=== PATIENT | male | born 1935 | race Caucasian/White ===

== ENCOUNTER 2017-06-15 13:38 | Emergency (ER) | payer MEDICARE, BC ==
--- NOTE | 2017-06-15 15:49 | EDM.PDOC ---
ED HPI GENERAL MEDICAL PROBLEM - General Chief Complaint: Gastrointestinal Problem Stated Complaint: DARK STOOLS VERY WEAK Time Seen by Provider: 06/15/17 14:50 Source of Information: Reports: Patient History Limitations: Reports: No Limitations - History of Present Illness INITIAL COMMENTS - FREE TEXT/NARRATIVE: 81-year-old male is in with weakness, dark stools for the past 4 days and generalized malaise. He had an echocardiogram at [place] done a week ago and has a significant bruise on the left chest from this, but that seems to be improving. No shortness of breath. He is on Coumadin and is due for an INR check in 2 weeks. He has no chest pain, abdominal pain, headache, or other bruising. He did brush his teeth vigorously the last few days and had a small amount of bleeding. Onset: Unknown/Unsure Severity: Moderate Associated Symptoms: Reports: Weakness - Related Data Allergies Allergy/AdvReac Type Severity Reaction Status Date / Time No Known Allergies Allergy Verified 06/15/17 14:41 Home Meds: Home Meds Finasteride [Finasteride] 5 mg PO DAILY 05/13/14 [History] Furosemide [Furosemide] 40 mg PO DAILY 05/13/14 [History] Lisinopril [Lisinopril] 2.5 mg PO DAILY 05/13/14 [History] Metoprolol Tartrate [Metoprolol Tartrate] 50 mg PO BID 05/13/14 [History] Warfarin [Coumadin] 5 mg PO MO 05/13/14 [History] atorvaSTATin [Lipitor] 40 mg PO DAILY 05/13/14 [History] metFORMIN [Glucophage] 1,000 mg PO QAM 05/13/14 [History] metFORMIN [Glucophage] 500 mg PO QPM 05/13/14 [History] Warfarin [Coumadin] 2.5 mg PO SUTUWETHFRSA 05/14/14 [History] Past Medical History HEENT History: Reports: Impaired Vision Cardiovascular History: Reports: Heart Valve Replacement, Hypertension, Pacemaker Genitourinary History: Reports: BPH Neurological History: Reports: CVA Endocrine/Metabolic History: Reports: Diabetes, Type II - Infectious Disease History Infectious Disease History: Reports: Chicken Pox, Measles, Mumps - Past Surgical History Cardiovascular Surgical History: Reports: Vascular Surgery Social & Family History - Tobacco Use Smoking Status *Q: Former Smoker Used Tobacco, but Quit: Yes Month Tobacco Last Used: 1988 Second Hand Smoke Exposure: No - Caffeine Use Caffeine Use: Reports: Coffee, Soda - Alcohol Use Days Per Week of Alcohol Use: 0 - Recreational Drug Use Recreational Drug Use: No ED ROS GENERAL - Review of Systems Review Of Systems: See Below Constitutional: Reports: Malaise, Weakness. Denies: Fever, Chills HEENT: Reports: Other (A small amount of dental bleeding with brushing, no epistaxis) Respiratory: Denies: Shortness of Breath, Cough Cardiovascular: Denies: Chest Pain Endocrine: Reports: Fatigue GI/Abdominal: Reports: Black Stool. Denies: Abdominal Pain, Nausea, Vomiting : Reports: No Symptoms Musculoskeletal: Reports: No Symptoms Skin: Reports: Bruising (Left chest from a recent echocardiogram) Neurological: Reports: Weakness. Denies: Headache, Syncope Psychiatric: Reports: No Symptoms ED EXAM, GENERAL - Physical Exam Exam: See Below Exam Limited By: No Limitations General Appearance: Alert, No Apparent Distress Eye Exam: Bilateral Eye: Normal Inspection Respiratory/Chest: No Respiratory Distress, Lungs Clear, Other (Patient has a bruise on the left lateral chest but there is no firmness or hematoma formation) Cardiovascular: Regular Rate, Rhythm, Other (Very loud systolic murmur from an artificial aortic valve) GI/Abdominal: Soft, Non-Tender Rectal (Males) Exam: Black Stool, Heme + Stool Extremities: No: Pedal Edema Neurological: Alert, Oriented Psychiatric: Normal Affect, Normal Mood Skin Exam: Warm, Dry, Other (Appears somewhat pale) Course - Vital Signs Last Recorded V/S: Last Vital Signs Temp 98.4 F 06/15/17 16:42 Pulse 85 06/15/17 16:42 Resp 16 06/15/17 16:42 BP 165/78 H 06/15/17 16:42 Pulse Ox 98 06/15/17 16:42 - Orders/Labs/Meds Orders: Active Orders 24 hr Category Date Time Status RED BLOOD CELLS LP [BBK] Stat Lab 06/15/17 15:15 Received TYPE AND SCREEN [BBK] Stat Lab 06/15/17 15:15 Received Transfuse Red Blood Cells [COMM] Stat Oth 06/15/17 16:17 Ordered Labs: Laboratory Tests 06/15/17 06/15/17 06/15/17 Range/Units 15:15 15:15 15:15 WBC 9.7 (4.5-11.0) K/uL RBC 3.01 L (4.30-5.90) M/uL Hgb 8.4 L D (12.0-15.0) g/dL Hct 25.4 L (40.0-54.0) % MCV 84 (80-98) fL MCH 28 (27-31) pg MCHC 33 (32-36) % Plt Count 203 (150-400) K/uL Neut % (Auto) 81 H (36-66) % Lymph % (Auto) 11 L (24-44) % [place] % (Auto) 8 H (2-6) % Eos % (Auto) 1 L (2-4) % Baso % (Auto) 0 (0-1) % PT > 100.0 H (9.5-12.0) sec INR (0.80-1.20) Sodium 137 L (140-148) mmol/L Potassium 4.9 (3.6-5.2) mmol/L Chloride 104 (100-108) mmol/L Carbon Dioxide 24 (21-32) mmol/L Anion Gap 13.9 (5.0-14.0) mmol/L BUN 40 H D (7-18) mg/dL Creatinine 1.2 (0.8-1.3) mg/dL Est Cr Clr Drug Dosing 52.09 mL/min Estimated GFR (MDRD) 58 L (>60) Glucose 172 H (74-106) mg/dL Calcium 7.7 L (8.5-10.1) mg/dL Meds: Medications Discontinued Medications Generic Name Dose Route Start Last Admin Trade Name Freq PRN Reason Stop Dose Admin Phytonadione 5 mg/ Sodium 50.5 mls @ 100 mls/hr 06/15/17 16:15 06/15/17 16:31 Chloride IV 06/15/17 16:45 100 mls/hr NOW ONE Administration Phytonadione 5 mg/ Sodium 50.5 mls @ 100 mls/hr 06/15/17 17:03 06/15/17 17:05 Chloride IV 06/15/17 17:33 100 mls/hr NOW ONE Administration Pantoprazole Sodium 40 mg 06/15/17 15:56 06/15/17 16:28 Protonix Iv IVPUSH 06/15/17 15:57 40 mg ONETIME ONE Administration - Re-Assessments/Exams Free Text/Narrative Re-Assessment/Exam: 06/15/17 15:49 Stool is strongly guaiac positive. Hemoglobin is 8.4 compared to 13 in August. 06/15/17 16:28 2 units of packed RBCs were ordered for infusion, 5 mg of vitamin K IV was given as well as 40 mg of IV Protonix. Dr. Talbert, hospitalist that he sentient in [place] kindly agreed to see the patient. Patient remained stable. 06/15/17 17:04 A second dose of vitamin K was given prior to discharge to [place]. An emergency release packed RBC was needed as the order to lab was delayed and the blood was not ready by discharge. Departure - Departure Time of Disposition: 17:43 Disposition: DC/Tfer to Other Condition: Fair Clinical Impression: Acute blood loss anemia GI bleeding Qualifiers: GI bleed type/associated pathology: melena Qualified Code(s): K92.1 - Melena - Discharge Information Referrals: Luis Talbert MD [Primary Care Provider] - Forms: ED Department Discharge Care Plan Goals: Patient is to be urgently transferred to [place] essential for inpatient management of blood loss anemia due to GI bleeding. - My Orders Last 24 Hours: My Active Orders 06/15/17 15:15 RED BLOOD CELLS LP [BBK] Stat TYPE AND SCREEN [BBK] Stat 06/15/17 16:17 Transfuse Red Blood Cells [COMM] Stat - Assessment/Plan Last 24 Hours: My Active Orders 06/15/17 15:15 RED BLOOD CELLS LP [BBK] Stat TYPE AND SCREEN [BBK] Stat 06/15/17 16:17 Transfuse Red Blood Cells [COMM] Stat
[2017-06-15] MEDS ORDERED: Pantoprazole 40 MG Vial IVPUSH ONE (15:56)
[2017-06-15] MEDS ORDERED: Phytonadione 5 MG in Sodium Chloride 0.9% 50 ML IV ONE ×3 (15:56→17:03)
[2017-06-15 16:43] VITALS: BP 165/78
== END 2017-06-15 17:44 | disposition other institution (70) ==
LOC: JP.ED 13:38
DX: K92.1 Melena (principal); D62 Acute posthemorrhagic anemia; Z79.899 Other long term (current) drug therapy; E11.9 Type 2 diabetes mellitus without complications; Z79.01 Long term (current) use of anticoagulants; Z87.891 Personal history of nicotine dependence
CPT/HCPCS: 36415; 36430; 80048; 82272; 85025; 85610; 86850; 86900; 86901; 86920; 86922; 96365; 96375; 99285; C9113; J3430; J7050; P9016; 99284

== ENCOUNTER 2020-06-26 11:47 | Inpatient (IN) | payer MEDICARE, BC ==
--- NOTE | 2020-06-26 12:50 | EDM.PDOC ---
ED HPI GENERAL MEDICAL PROBLEM - General Chief Complaint: General Stated Complaint: MEDICAL VIA [facility] Time Seen by Provider: 06/26/20 11:59 Source of Information: Reports: Patient, EMS History Limitations: Reports: No Limitations - History of Present Illness INITIAL COMMENTS - FREE TEXT/NARRATIVE: Vaibhav is an 84-year-old male presenting via EMS for evaluation of worsening dizziness and headache. Patient apparently had a fall striking his face and head on the ground 10 days ago. EMS was called at that time but he refused to come in to be evaluated. Patient is on anticoagulation with warfarin. In addition to this, the patient also has a history for diabetes and hypertension. Location: Reports: Head Context: Reports: Trauma Associated Symptoms: Reports: Headaches - Related Data Allergies Allergy/AdvReac Type Severity Reaction Status Date / Time No Known Allergies Allergy Verified 06/26/20 12:16 Home Meds: Home Meds Finasteride 5 mg PO DAILY 05/13/14 [History] Furosemide 40 mg PO DAILY 05/13/14 [History] Lisinopril 2.5 mg PO DAILY 05/13/14 [History] Metoprolol Tartrate 50 mg PO BID 05/13/14 [History] Warfarin [Coumadin] 5 mg PO MO 05/13/14 [History] atorvaSTATin [Lipitor] 40 mg PO DAILY 05/13/14 [History] metFORMIN [Glucophage] 1,000 mg PO QAM 05/13/14 [History] metFORMIN [Glucophage] 500 mg PO QPM 05/13/14 [History] Warfarin [Coumadin] 2.5 mg PO SUTUWETHFRSA 05/14/14 [History] Past Medical History HEENT History: Reports: Hard of Hearing, Impaired Vision Cardiovascular History: Reports: Heart Valve Replacement, Hypertension, [place] er Genitourinary History: Reports: BPH Neurological History: Reports: CVA Endocrine/Metabolic History: Reports: Diabetes, Type II Hematologic History: Reports: Anticoagulation Therapy - Infectious Disease History Infectious Disease History: Reports: Chicken Pox, Measles, Mumps - Past Surgical History Head Surgeries/Procedures: Reports: None HEENT Surgical History: Reports: None Cardiovascular Surgical History: Reports: Vascular Surgery Endocrine Surgical History: Reports: None Neurological Surgical History: Reports: None Dermatological Surgical History: Reports: None Social & Family History - Family History Family Medical History: Unobtainable - Tobacco Use Tobacco Use Status *Q: Former Tobacco User Used Tobacco, but Quit: Yes Month/Year Tobacco Last Used: 1987 Second Hand Smoke Exposure: No - Caffeine Use Caffeine Use: Reports: Soda - Recreational Drug Use Recreational Drug Use: No ED ROS GENERAL - Review of Systems Review Of Systems: See Below Constitutional: Reports: Fatigue Respiratory: Reports: No Symptoms Cardiovascular: Reports: No Symptoms Endocrine: Reports: No Symptoms GI/Abdominal: Reports: Nausea : Reports: No Symptoms Musculoskeletal: Reports: Neck Pain Skin: Reports: No Symptoms Neurological: Reports: Dizziness, Headache Psychiatric: Reports: No Symptoms Hematologic/Lymphatic: Reports: No Symptoms Immunologic: Reports: No Symptoms ED EXAM, GENERAL - Physical Exam Exam: See Below Exam Limited By: No Limitations General Appearance: Alert, Anxious, Mild Distress Eye Exam: Bilateral Eye: EOMI, PERRL Ears: Normal TMs Nose: Normal Inspection, Normal Mucosa, No Blood Throat/Mouth: Normal Inspection, Normal Lips, Normal Oropharynx, Normal Voice Head: Atraumatic, Normocephalic Neck: Normal Inspection, Supple, Non-Tender Respiratory/Chest: No Respiratory Distress, Lungs Clear, Normal Breath Sounds, No Accessory Muscle Use, Chest Non-Tender Cardiovascular: Normal Peripheral Pulses, Regular Rate, Rhythm, No Edema, No JV D, No Murmur Peripheral Pulses: 2+: Radial (L), Radial (R) GI/Abdominal: Normal Bowel Sounds, Soft, Non-Tender, No Distention Back Exam: Normal Inspection, Full Range of Motion Extremities: Normal Inspection, Normal Range of Motion, Non-Tender, No Pedal Edema Neurological: Alert, Oriented, CN II-XII Intact, Normal Cognition, No Motor/Sensory Deficits Psychiatric: Normal Affect, Anxious Skin Exam: Warm, Dry, Intact Lymphatic: No Adenopathy Course - Vital Signs Last Recorded V/S: Last Vital Signs Temp 36.3 C 06/26/20 12:17 Pulse 60 06/26/20 12:17 Resp 16 06/26/20 12:17 BP 128/76 06/26/20 12:17 Pulse Ox 97 06/26/20 12:17 Orthostatic Blood Pressure [ 91/55 Standing] Orthostatic Blood Pressure [ 104/61 Sitting] Orthostatic Blood Pressure [ 122/61 Supine] - Orders/Labs/Meds Orders: Active Orders 24 hr Category Date Time Status CULTURE URINE [RM] Stat Lab 06/26/20 15:57 Received Labs: Laboratory Tests 06/26/20 06/26/20 06/26/20 Range/Units 12:13 12:13 12:13 WBC 5.8 (4.5-11.0) K/uL RBC 4.20 L (4.30-5.90) M/uL Hgb 11.4 L D (12.0-15.0) g/dL Hct 35.2 L (40.0-54.0) % MCV 84 (80-98) fL MCH 27 (27-31) pg MCHC 32 (32-36) % Plt Count 251 (150-400) K/uL Neut % (Auto) 77 H (36-66) % Lymph % (Auto) 11 L (24-44) % Door % (Auto) 11 H (2-6) % Eos % (Auto) 0 L (2-4) % Baso % (Auto) 1 (0-1) % PT 98.0 H (9.5-12.0) sec INR 9.39 H* D (0.80-1.20) Sodium 135 L (140-148) mmol/L Potassium 4.8 (3.6-5.2) mmol/L Chloride 101 (100-108) mmol/L Carbon Dioxide 26 (21-32) mmol/L Anion Gap 12.8 (5.0-14.0) mmol/L BUN 28 H (7-18) mg/dL Creatinine 1.6 H (0.8-1.3) mg/dL Est Cr Clr Drug Dosing 37.05 mL/min Estimated GFR (MDRD) 41 L (>60) Glucose 142 H (74-106) mg/dL Calcium 8.2 L (8.5-10.1) mg/dL Total Bilirubin 1.3 H (0.2-1.0) mg/dL AST 25 (15-37) U/L ALT 16 (12-78) U/L Alkaline Phosphatase 102 (46-116) U/L Total Protein 5.5 L (6.4-8.2) g/dL Albumin 2.7 L (3.4-5.0) g/dL Globulin 2.8 (2.3-3.5) g/dL Albumin/Globulin Ratio 1.0 L (1.2-2.2) Urine Color (YELLOW) Urine Appearance (CLEAR) Urine pH (5.0-8.0) Ur Specific [place] (1.008-1.030) Urine Protein (NEGATIVE) mg/dL Urine Glucose (UA) (NEGATIVE) mg/dL Urine Ketones (NEGATIVE) mg/dL Urine Occult Blood (NEGATIVE) Urine Nitrite (NEGATIVE) Urine Bilirubin (NEGATIVE) Urine Urobilinogen (0.2-1.0) EU/dL Ur Leukocyte Esterase (NEGATIVE) Urine RBC (0-5) Urine WBC (0-5) Ur Epithelial Cells Amorphous Sediment Urine Bacteria SARS CoV-2 RNA Rapid MARTIN 06/26/20 06/26/20 Range/Units 15:03 15:35 WBC (4.5-11.0) K/uL RBC (4.30-5.90) M/uL Hgb (12.0-15.0) g/dL Hct (40.0-54.0) % MCV (80-98) fL MCH (27-31) pg MCHC (32-36) % Plt Count (150-400) K/uL Neut % (Auto) (36-66) % Lymph % (Auto) (24-44) % Door % (Auto) (2-6) % Eos % (Auto) (2-4) % Baso % (Auto) (0-1) % PT (9.5-12.0) sec INR (0.80-1.20) Sodium (140-148) mmol/L Potassium (3.6-5.2) mmol/L Chloride (100-108) mmol/L Carbon Dioxide (21-32) mmol/L Anion Gap (5.0-14.0) mmol/L BUN (7-18) mg/dL Creatinine (0.8-1.3) mg/dL Est Cr Clr Drug Dosing mL/min Estimated GFR (MDRD) (>60) Glucose (74-106) mg/dL Calcium (8.5-10.1) mg/dL Total Bilirubin (0.2-1.0) mg/dL AST (15-37) U/L ALT (12-78) U/L Alkaline Phosphatase (46-116) U/L Total Protein (6.4-8.2) g/dL Albumin (3.4-5.0) g/dL Globulin (2.3-3.5) g/dL Albumin/Globulin Ratio (1.2-2.2) Urine Color Yellow (YELLOW) Urine Appearance Slightly cloudy A (CLEAR) Urine pH 5.5 (5.0-8.0) Ur Specific [place] 1.015 (1.008-1.030) Urine Protein 30 H (NEGATIVE) mg/dL Urine Glucose (UA) Negative (NEGATIVE) mg/dL Urine Ketones Negative (NEGATIVE) mg/dL Urine Occult Blood Negative (NEGATIVE) Urine Nitrite Positive H (NEGATIVE) Urine Bilirubin Negative (NEGATIVE) Urine Urobilinogen 0.2 (0.2-1.0) EU/dL Ur Leukocyte Esterase Moderate H (NEGATIVE) Urine RBC Not seen (0-5) Urine WBC 50-75 H (0-5) Ur Epithelial Cells Not seen Amorphous Sediment Few Urine Bacteria Many SARS CoV-2 RNA Rapid MARTIN Positive H Meds: Medications Discontinued Medications Generic Name Dose Route Start Last Admin Trade Name Freq PRN Reason Stop Dose Admin Phytonadione 10 mg/ Sodium 51 mls @ 100 mls/hr 06/26/20 14:57 06/26/20 15:28 Chloride IV 06/26/20 15:27 100 mls/hr NOW ONE Administration Ceftriaxone Sodium 1 gm/ 50 mls @ 100 mls/hr 06/26/20 17:00 Sodium Chloride IV 06/26/20 17:29 ONETIME ONE Ceftriaxone Sodium 1 gm/ 50 mls @ 100 mls/hr 06/26/20 17:00 06/26/20 17:05 Sodium Chloride IV 06/26/20 17:29 100 mls/hr ONETIME ONE Administration - Re-Assessments/Exams Free Text/Narrative Re-Assessment/Exam: 06/26/20 15:23 patient has a markedly elevated INR at 9.3 with recent fall 10 days ago causing increased weakness, ongoing dizziness, and headache. A CT of his brain failed to demonstrate any acute intracranial abnormalities, however, he lives alone and with the recent falls and the supratherapeutic INR, I feel that he should come in until improved. A COVID-19 test is currently pending awaiting results prior to admission. Patient has been given vitamin K 10 mg IV for his supratherapeutic INR. 06/26/20 15:55 urinalysis shows nitrite positive and 50-75 WBCs consistent with an acute urinary tract infection. Patient is also COVID-19 positive. We will discussed the case with Dr Noonan as the patient will likely need to be admitted to [facility]. Antibiotic therapy was initiated with Rocephin 1 g IV after urine cultures were obtained. Departure - Departure Time of Disposition: 17:33 Disposition: Admitted As Inpatient 66 Condition: Fair Clinical Impression: Dizziness, Elevated INR, Generalized weakness, COVID-19 Fall from standing Qualifiers: Encounter type: initial encounter Qualified Code(s): W19.XXXA - Unspecified fall, initial encounter Urinary tract infection Qualifiers: Urinary tract infection type: acute cystitis Hematuria presence: without hematuria Qualified Code(s): N30.00 - Acute cystitis without hematuria - Discharge Information *PRESCRIPTION DRUG MONITORING PROGRAM REVIEWED*: Not Applicable *COPY OF PRESCRIPTION DRUG MONITORING REPORT IN PATIENT ROCKY: Not Applicable Referrals: PCP,None [Primary Care Provider] - Forms: ED Department Discharge Care Plan Goals: I will arrange for admission to the [facility]. I discussed the case with Dr. Noonan. Sepsis Event Note (ED) - Evaluation Sepsis Screening Result: No Definite Risk - Focused Exam Vital Signs: Vital Signs Temp Pulse Resp BP Pulse Ox 06/26/20 12:17 36.3 C 60 16 128/76 97 06/26/20 12:14 36.3 C 60 16 128/76 97 - Problem List & Annotations (1) Fall from standing SNOMED Code(s): 3570512 Code(s): W19.XXXA - UNSPECIFIED FALL, INITIAL ENCOUNTER Status: Acute Priority: Medium Current Visit: Yes Qualifiers: Encounter type: initial encounter Qualified Code(s): W19.XXXA - Unspecified fall, initial encounter (2) Dizziness SNOMED Code(s): 672985327, 189045790 Code(s): R42 - DIZZINESS AND GIDDINESS Status: Acute Priority: Medium Current Visit: Yes (3) Elevated INR SNOMED Code(s): 701773266 Code(s): R79.1 - ABNORMAL COAGULATION PROFILE Status: Acute Priority: High Current Visit: Yes (4) Generalized weakness SNOMED Code(s): 72960230 Code(s): R53.1 - WEAKNESS Status: Acute Priority: Medium Current Visit: Yes (5) COVID-19 SNOMED Code(s): 451516930 Code(s): U07.1 - COVID-19 Status: Acute Priority: High Current Visit: Yes (6) Urinary tract infection SNOMED Code(s): 24966428 Code(s): N39.0 - URINARY TRACT INFECTION, SITE NOT SPECIFIED Status: Acute Priority: Medium Current Visit: Yes Qualifiers: Urinary tract infection type: acute cystitis Hematuria presence: without hematuria Qualified Code(s): N30.00 - Acute cystitis without hematuria - Problem List Review Problem List Initiated/Reviewed/Updated: Yes - My Orders Last 24 Hours: My Active Orders 06/26/20 15:57 CULTURE URINE [RM] Stat - Assessment/Plan Last 24 Hours: My Active Orders 06/26/20 15:57 CULTURE URINE [RM] Stat Plan: I will arrange for admission to the hospital for a Covid bed. The case is discussed with Dr. Noonan.
--- NOTE | 2020-06-26 13:26 | CT ---
Head wo Cont CLINICAL HISTORY: Fall 2010 days ago, on anticoagulation, dizziness and headache COMPARISON: None TECHNIQUE: Transverse scans were obtained from the base of the skull through the vertex without IV contrast on a multislice, multidetector CT scanner. Auto dosage reduction and iterative reconstruction techniques employed. FINDINGS: There is a small irregular shaped low-attenuation focus in the right basal ganglia near the posterior horn of the internal capsule most consistent with a prior CVA. There is no mass effect, hemorrhage, or extraaxial collection. The basal cisterns and sulci over the convexities are prominent. The ventricles are mildly prominent. 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
[2020-06-26] MEDS ORDERED: Phytonadione 10 MG in Sodium Chloride 0.9% 50 ML IV ONE (14:57)
[2020-06-26] MEDS ORDERED: cefTRIAXone 1 GM in Sodium Chloride 0.9% 50 ML IV ONE ×3 (15:53→17:00)
--- NOTE | 2020-06-26 18:50 | PCM.HP.2 ---
H&P History of Present Illness - General Date of Service: 06/26/20 Admit Problem/Dx: Admission Diagnosis/Problem Admission Diagnosis/Problem Urinary tract infection Source of Information: Patient, Provider, RN Notes Reviewed History Limitations: Reports: No Limitations - History of Present Illness Initial Comments - Free Text/Narative: Mr. Cano is an 84-year-old gentleman who was admitted through the emergency department with weakness secondary to urinary tract infection and COVID-19. He has not felt well over the past week and a half and has become progressively m ore weak. He denies respiratory symptoms no shortness of breath or cough. He also denies any recent fever or chills. He has had a recent fall and several other episodes where he has come close to falling because of his weakness. On evaluation in the emergency department he is found to be Covid positive and also has evidence of urinary tract infection. 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 INR is markedly elevated at 9, he has had no evidence of active bleeding. - Related Data Allergies/Adverse Reactions: Allergies Allergy/AdvReac Type Severity Reaction Status Date / Time No Known Allergies Allergy Verified 06/26/20 12:16 Home Medications: Home Meds Finasteride 5 mg PO DAILY 05/13/14 [History] Furosemide 40 mg PO DAILY 05/13/14 [History] Lisinopril 2.5 mg PO DAILY 05/13/14 [History] Metoprolol Tartrate 50 mg PO BID 05/13/14 [History] Warfarin [Coumadin] 5 mg PO MO 05/13/14 [History] atorvaSTATin [Lipitor] 40 mg PO DAILY 05/13/14 [History] metFORMIN [Glucophage] 1,000 mg PO QAM 05/13/14 [History] metFORMIN [Glucophage] 500 mg PO QPM 05/13/14 [History] Warfarin [Coumadin] 2.5 mg PO [id number] 05/14/14 [History] Past Medical History HEENT History: Reports: Hard of Hearing, Impaired Vision Cardiovascular History: Reports: Heart Valve Replacement, Hypertension, Pacemaker Genitourinary History: Reports: BPH Neurological History: Reports: CVA Endocrine/Metabolic History: Reports: Diabetes, Type II Hematologic History: Reports: Anticoagulation Therapy - Infectious Disease History Infectious Disease History: Reports: Chicken Pox, Measles, Mumps - Past Surgical History Head Surgeries/Procedures: Reports: None HEENT Surgical History: Reports: None Cardiovascular Surgical History: Reports: Vascular Surgery Endocrine Surgical History: Reports: None Neurological Surgical History: Reports: None Dermatological Surgical History: Reports: None Social & Family History - Family History Family Medical History: Unobtainable - Tobacco Use Tobacco Use Status *Q: Former Tobacco User Used Tobacco, but Quit: Yes Month/Year Tobacco Last Used: 1987 Second Hand Smoke Exposure: No - Caffeine Use Caffeine Use: Reports: Soda - Recreational Drug Use Recreational Drug Use: No H&P Review of Systems - Review of Systems: Review Of Systems: See Below General: Reports: Weakness, Fatigue. Denies: Fever, Chills HEENT: Reports: No Symptoms Pulmonary: Reports: No Symptoms Cardiovascular: Reports: No Symptoms Gastrointestinal: Reports: No Symptoms Genitourinary: Reports: No Symptoms Musculoskeletal: Reports: No Symptoms Skin: Reports: No Symptoms Psychiatric: Reports: No Symptoms Neurological: Reports: No Symptoms Hematologic/Lymphatic: Reports: No Symptoms Immunologic: Reports: No Symptoms Exam - Exam Exam: See Below - Vital Signs Vital Signs: Last Vital Signs Temp 97.4 F 06/26/20 12:17 Pulse 60 06/26/20 12:17 Resp 16 06/26/20 12:17 BP 128/76 06/26/20 12:17 Pulse Ox 97 06/26/20 12:17 Orthostatic Blood Pressure [ 91/55 Standing] Orthostatic Blood Pressure [ 104/61 Sitting] Orthostatic Blood Pressure [ 122/61 Supine] Weight: 177 lb - Exam Quality Assessment: DVT Prophylaxis General: Alert, Cooperative, Mild Distress HEENT: Conjunctiva Clear, Hearing Intact, Mucosa Moist & [place], Normal Nasal Septum, Posterior Pharynx Clear, Pupils Equal Neck: Supple, Trachea Midline, +2 Carotid Pulse wo Bruit Lungs: Clear to Auscultation, Normal Respiratory Effort Cardiovascular: Regular Rate, Regular Rhythm, Normal S1, Normal S2, Other ([place] prosthetic valve sounds) GI/Abdominal Exam: Soft, Non-Tender, No Organomegaly, No Distention Back Exam: Normal Inspection, Full Range of Motion Extremities: Normal Inspection, Normal Range of Motion, Non-Tender, No Pedal Edema Skin: Warm, Dry, Intact Neurological: Cranial Nerves Intact, Strength Equal Bilateral, Normal Speech, Normal Tone, Sensation Intact. No: Focal Deficit Neuro Extensive - Mental Status: Alert, Disorientation to Time, Memory Loss- Recent Events - Patient Data Lab Results Last 24 hrs: Laboratory Results - last 24 hr 06/26/20 06/26/20 06/26/20 Range/Units 12:13 12:13 12:13 WBC 5.8 (4.5-11.0) K/uL RBC 4.20 L (4.30-5.90) M/uL Hgb 11.4 L D (12.0-15.0) g/dL Hct 35.2 L (40.0-54.0) % MCV 84 (80-98) fL MCH 27 (27-31) pg MCHC 32 (32-36) % Plt Count 251 (150-400) K/uL Neut % (Auto) 77 H (36-66) % Lymph % (Auto) 11 L (24-44) % [place] % (Auto) 11 H (2-6) % Eos % (Auto) 0 L (2-4) % Baso % (Auto) 1 (0-1) % PT 98.0 H (9.5-12.0) sec INR 9.39 H* D (0.80-1.20) Sodium 135 L (140-148) mmol/L Potassium 4.8 (3.6-5.2) mmol/L Chloride 101 (100-108) mmol/L Carbon Dioxide 26 (21-32) mmol/L Anion Gap 12.8 (5.0-14.0) mmol/L BUN 28 H (7-18) mg/dL Creatinine 1.6 H (0.8-1.3) mg/dL Est Cr Clr Drug Dosing 37.05 mL/min Estimated GFR (MDRD) 41 L (>60) Glucose 142 H (74-106) mg/dL Calcium 8.2 L (8.5-10.1) mg/dL Total Bilirubin 1.3 H (0.2-1.0) mg/dL AST 25 (15-37) U/L ALT 16 (12-78) U/L Alkaline Phosphatase 102 (46-116) U/L Total Protein 5.5 L (6.4-8.2) g/dL Albumin 2.7 L (3.4-5.0) g/dL Globulin 2.8 (2.3-3.5) g/dL Albumin/Globulin Ratio 1.0 L (1.2-2.2) Urine Color (YELLOW) Urine Appearance (CLEAR) Urine pH (5.0-8.0) Ur Specific [place] (1.008-1.030) Urine Protein (NEGATIVE) mg/dL Urine Glucose (UA) (NEGATIVE) mg/dL Urine Ketones (NEGATIVE) mg/dL Urine Occult Blood (NEGATIVE) Urine Nitrite (NEGATIVE) Urine Bilirubin (NEGATIVE) Urine Urobilinogen (0.2-1.0) EU/dL Ur Leukocyte Esterase (NEGATIVE) Urine RBC (0-5) Urine WBC (0-5) Ur Epithelial Cells Amorphous Sediment Urine Bacteria SARS CoV-2 RNA Rapid MARTIN 06/26/20 06/26/20 Range/Units 15:03 15:35 WBC (4.5-11.0) K/uL RBC (4.30-5.90) M/uL Hgb (12.0-15.0) g/dL Hct (40.0-54.0) % MCV (80-98) fL MCH (27-31) pg MCHC (32-36) % Plt Count (150-400) K/uL Neut % (Auto) (36-66) % Lymph % (Auto) (24-44) % [place] % (Auto) (2-6) % Eos % (Auto) (2-4) % Baso % (Auto) (0-1) % PT (9.5-12.0) sec INR (0.80-1.20) Sodium (140-148) mmol/L Potassium (3.6-5.2) mmol/L Chloride (100-108) mmol/L Carbon Dioxide (21-32) mmol/L Anion Gap (5.0-14.0) mmol/L BUN (7-18) mg/dL Creatinine (0.8-1.3) mg/dL Est Cr Clr Drug Dosing mL/min Estimated GFR (MDRD) (>60) Glucose (74-106) mg/dL Calcium (8.5-10.1) mg/dL Total Bilirubin (0.2-1.0) mg/dL AST (15-37) U/L ALT (12-78) U/L Alkaline Phosphatase (46-116) U/L Total Protein (6.4-8.2) g/dL Albumin (3.4-5.0) g/dL Globulin (2.3-3.5) g/dL Albumin/Globulin Ratio (1.2-2.2) Urine Color Yellow (YELLOW) Urine Appearance Slightly cloudy A (CLEAR) Urine pH 5.5 (5.0-8.0) Ur Specific [place] 1.015 (1.008-1.030) Urine Protein 30 H (NEGATIVE) mg/dL Urine Glucose (UA) Negative (NEGATIVE) mg/dL Urine Ketones Negative (NEGATIVE) mg/dL Urine Occult Blood Negative (NEGATIVE) Urine Nitrite Positive H (NEGATIVE) Urine Bilirubin Negative (NEGATIVE) Urine Urobilinogen 0.2 (0.2-1.0) EU/dL Ur Leukocyte Esterase Moderate H (NEGATIVE) Urine RBC Not seen (0-5) Urine WBC 50-75 H (0-5) Ur Epithelial Cells Not seen Amorphous Sediment Few Urine Bacteria Many SARS CoV-2 RNA Rapid MARTIN Positive H Result Diagrams: 06/26/20 12:13 06/26/20 12:13 Sepsis Event Note - Evaluation Sepsis Screening Result: No Definite Risk - Focused Exam Vital Signs: Vital Signs Temp Pulse Resp BP Pulse Ox 06/26/20 12:17 97.4 F 60 16 128/76 97 06/26/20 12:14 97.4 F 60 16 128/76 97 *Q Meaningful Use (ADM) - VTE *Q VTE Pharmacological Contraindications *Q: High INR Value - VTE Risk Assess *Q Each Risk Factor Represents 1 Point: Congestive heart failure (CHF) Total Score 1 Point Risk Factors: 1 Each Risk Factor Represents 2 Points: None Total Score 2 Point Risk Factors: 0 Each Risk Factor Represents 3 Points: Age 75 Years or Greater Total Score 3 Point Risk Factors: 3 Each Risk Factor Represents 5 Points: None Total Score 5 Point Risk Factors: 0 Venous Thromboembolism Risk Factor Score *Q: 4 Problem List Initiated/Reviewed/Updated: Yes Orders Last 24hrs: Active Orders 24 hr Category Date Time Status Patient Status Manage Transfer [TRANSFER] Routine ADT 06/26/20 18:04 Ordered CULTURE URINE [RM] Stat Lab 06/26/20 15:57 Received Resuscitation Status Routine Resus Stat 06/26/20 18:08 Ordered Assessment/Plan Comment:: ASSESSMENT AND PLAN URINARY TRACT INFECTION-symptoms of weakness but denies overt urinary symptoms. -Urine culture pending -Ceftriaxone 1 g IV every 24 hours GENERALIZED WEAKNESS-likely secondary to Covid as well as urinary tract infection. He has experienced a recent fall and has had several other close calls where he has been very near to a fall. He is currently not safe for discharged home. -Manage underlying medical problems -Physical therapy consult [id number] denies respiratory symptoms with no evidence of significant respiratory compromise or hypoxia -Supportive care -Monitor respiratory status -No active treatment at this time ELEVATED INR-given 10 mg of IV vitamin K in the emergency department -Reassess INR in a.m. TYPE 2 DIABETES MELLITUS -Continue Metformin -4 times daily glucometers -Low-dose sliding scale Humalog MAINTENANCE ISSUES -DVT prophylaxis; current elevated INR should provide adequate DVT prophylaxis -GI prophylaxis; not indicated -[place] catheter; not indicated -Nutrition; consistent carb diet -Nicotine dependence; not required CODE STATUS-FULL CODE ADMISSION STATUS-patient will be admitted to inpatient status, expect at least a 2 night hospital stay for evaluation and management of problems as outlined above. At the time of this admission I do not reasonably expected evaluation and management of this problem will require more than a 96 hour hospital stay. DISPOSITION-anticipate discharge to home after the hospital stay. PRIMARY CARE PROVIDER- - Mortality Measure Prognosis:: Good
[2020-06-26] MEDS ORDERED: Glucose Gel 15 GM in 37.5 GM Tube PO PRN (19:20)
[2020-06-26] MEDS ORDERED: Ondansetron 4 MG/2 ML SDV IV PRN (19:20)
[2020-06-26] MEDS ORDERED: Sodium Chloride 0.9% 10 ML Syringe FLUSH PRN (19:20)
[2020-06-26] MEDS ORDERED: Sodium Chloride 0.9% 1,000 ML IV SCH (19:20)
[2020-06-26] MEDS ORDERED: Polyethylene Glycol 3350 Powder 17 GM Packet PO PRN (19:20)
[2020-06-26] MEDS ORDERED: 50% Dextrose in Water 50 ML Syringe IV PRN (19:20)
[2020-06-26] MEDS: Insulin Lispro 100 Unit/ML 3 ML KwikPen SUBCUT SCH (21:59)
[2020-06-26] MEDS: Metoprolol Tartrate 50 MG Tab PO SCH (22:01)
[2020-06-27] MEDS: Acetaminophen 325 MG Tab PO PRN (04:32)
[2020-06-27] MEDS: Insulin Lispro 100 Unit/ML 3 ML KwikPen SUBCUT SCH ×4 (07:30→21:34)
[2020-06-27] MEDS: Metoprolol Tartrate 50 MG Tab PO SCH ×2 (08:44→21:38)
[2020-06-27] MEDS: Furosemide 40 MG Tab PO SCH (08:44)
[2020-06-27] MEDS: metFORMIN 500 MG Tab PO SCH ×2 (08:44→16:46)
[2020-06-27] MEDS: Finasteride 5 MG Tab PO SCH (08:45)
[2020-06-27] MEDS: Lisinopril 2.5 MG Tab PO SCH (08:45)
[2020-06-27] MEDS: atorvaSTATin 20 MG Tab PO SCH (08:46)
[2020-06-27] MEDS ORDERED: cefTRIAXone 1 GM in Sodium Chloride 0.9% 50 ML IV SCH (17:00)
--- NOTE | 2020-06-27 17:19 | PCM.PN ---
- General Info Date of Service: 06/27/20 Subjective Update: Mr. Cano has felt improved since admission with more energy and improved appetite. INR is improved significantly following vitamin K given in the emergency department. Vital signs have been stable and he has remained afebrile. Denies significant respiratory symptoms. Functional Status: Reports: Tolerating Diet, Ambulating, Urinating - Review of Systems General: Reports: Weakness. Denies: Fever, Fatigue, Chills Pulmonary: Reports: No Symptoms Cardiovascular: Reports: No Symptoms Gastrointestinal: Reports: No Symptoms - Patient Data Vitals - Most Recent: Last Vital Signs Temp 98.5 F 06/27/20 15:00 Pulse 83 06/27/20 14:56 Resp 16 06/27/20 14:56 BP 123/63 06/27/20 14:56 Pulse Ox 96 06/27/20 12:09 Orthostatic Blood Pressure [ 91/55 Standing] Orthostatic Blood Pressure [ 104/61 Sitting] Orthostatic Blood Pressure [ 122/61 Supine] Weight - Most Recent: 167 lb 0.002 oz I&O - Last 24 Hours: Intake & Output 06/27/20 06/27/20 06/27/20 06:59 14:59 22:59 Intake Total 1571 1008 Output Total 175 200 Balance 1571 833 -200 Lab Results Last 24 Hours: Laboratory Results - last 24 hr 06/26/20 06/27/20 06/27/20 Range/Units 21:00 05:20 05:20 WBC 4.9 (4.5-11.0) K/uL RBC 3.70 L (4.30-5.90) M/uL Hgb 10.0 L (12.0-15.0) g/dL Hct 31.2 L (40.0-54.0) % MCV 84 (80-98) fL MCH 27 (27-31) pg MCHC 32 (32-36) % Plt Count 214 (150-400) K/uL Neut % (Auto) 74 H (36-66) % Lymph % (Auto) 13 L (24-44) % [place] % (Auto) 13 H (2-6) % Eos % (Auto) 0 L (2-4) % Baso % (Auto) 0 (0-1) % PT (9.5-12.0) sec INR (0.80-1.20) Sodium 138 L (140-148) mmol/L Potassium 4.0 (3.6-5.2) mmol/L Chloride 104 (100-108) mmol/L Carbon Dioxide 25 (21-32) mmol/L Anion Gap 13.0 (5.0-14.0) mmol/L BUN 27 H (7-18) mg/dL Creatinine 1.3 (0.8-1.3) mg/dL Est Cr Clr Drug Dosing 44.51 mL/min Estimated GFR (MDRD) 52 L (>60) Glucose 121 H (74-106) mg/dL POC Glucose 196 H (74-106) MG/DL Calcium 8.1 L (8.5-10.1) mg/dL C-Reactive Protein 1.83 H (0.0-0.3) mg/dL 06/27/20 06/27/20 06/27/20 Range/Units 08:09 11:30 12:30 WBC (4.5-11.0) K/uL RBC (4.30-5.90) M/uL Hgb (12.0-15.0) g/dL Hct (40.0-54.0) % MCV (80-98) fL MCH (27-31) pg MCHC (32-36) % Plt Count (150-400) K/uL Neut % (Auto) (36-66) % Lymph % (Auto) (24-44) % [place] % (Auto) (2-6) % Eos % (Auto) (2-4) % Baso % (Auto) (0-1) % PT 13.4 H (9.5-12.0) sec INR 1.23 H D (0.80-1.20) Sodium (140-148) mmol/L Potassium (3.6-5.2) mmol/L Chloride (100-108) mmol/L Carbon Dioxide (21-32) mmol/L Anion Gap (5.0-14.0) mmol/L BUN (7-18) mg/dL Creatinine (0.8-1.3) mg/dL Est Cr Clr Drug Dosing mL/min Estimated GFR (MDRD) (>60) Glucose (74-106) mg/dL POC Glucose 125 H 186 H (74-106) MG/DL Calcium (8.5-10.1) mg/dL C-Reactive Protein (0.0-0.3) mg/dL 06/27/20 Range/Units 16:30 WBC (4.5-11.0) K/uL RBC (4.30-5.90) M/uL Hgb (12.0-15.0) g/dL Hct (40.0-54.0) % MCV (80-98) fL MCH (27-31) pg MCHC (32-36) % Plt Count (150-400) K/uL Neut % (Auto) (36-66) % Lymph % (Auto) (24-44) % [place] % (Auto) (2-6) % Eos % (Auto) (2-4) % Baso % (Auto) (0-1) % PT (9.5-12.0) sec INR (0.80-1.20) Sodium (140-148) mmol/L Potassium (3.6-5.2) mmol/L Chloride (100-108) mmol/L Carbon Dioxide (21-32) mmol/L Anion Gap (5.0-14.0) mmol/L BUN (7-18) mg/dL Creatinine (0.8-1.3) mg/dL Est Cr Clr Drug Dosing mL/min Estimated GFR (MDRD) (>60) Glucose (74-106) mg/dL POC Glucose 147 H (74-106) MG/DL Calcium (8.5-10.1) mg/dL C-Reactive Protein (0.0-0.3) mg/dL Vipul Results Last 24 Hours: Microbiology 06/26/20 15:57 Urine Culture - Preliminary Urine, Voided Med Orders - Current: Current Medications Acetaminophen (Tylenol) 650 mg PO Q4H PRN PRN Reason: Pain (Mild 1-3)/fever Last Admin: 06/27/20 04:32 Dose: 650 mg Documented by: Atorvastatin Calcium (Lipitor) 40 mg PO DAILY S[place]ET Last Admin: 06/27/20 08:46 Dose: 40 mg Documented by: Dextrose (Glutose 15) 15 gm PO ONETIME PRN PRN Reason: Hypoglycemia Dextrose/Water (Dextrose 50% In Water) 50 ml IV ONETIME PRN PRN Reason: Hypoglycemia Enoxaparin Sodium (Lovenox) 80 mg SUBCUT Q12H [place] Finasteride (Proscar) 5 mg PO DAILY [facility] Last Admin: 06/27/20 08:45 Dose: 5 mg Documented by: Furosemide (Lasix) 40 mg PO DAILY [facility] Last Admin: 06/27/20 08:44 Dose: 40 mg Documented by: Ceftriaxone Sodium 1 gm/ (Sodium Chloride) 50 mls @ 100 mls/hr IV Q24H [facility] Last Admin: 06/27/20 16:47 Dose: 100 mls/hr Documented by: Insulin Human Lispro (Humalog) 0 unit SUBCUT QIDACANDBED [facility]; Protocol Last Admin: 06/27/20 16:40 Dose: Not Given Documented by: Lisinopril (Prinivil) 2.5 mg PO DAILY [facility] Last Admin: 06/27/20 08:45 Dose: 2.5 mg Documented by: Metformin HCl (Glucophage) 500 mg PO QPM [facility] Last Admin: 06/27/20 16:46 Dose: 500 mg Documented by: Metformin HCl (Glucophage) 1,000 mg PO DAILY@0800 [facility] Last Admin: 06/27/20 08:44 Dose: 1,000 mg Documented by: Metoprolol Tartrate (Lopressor) 50 mg PO BID [facility] Last Admin: 06/27/20 08:44 Dose: 50 mg Documented by: Ondansetron HCl (Zofran) 4 mg IV Q4H PRN PRN Reason: Nausea/Vomiting Polyethylene Glycol (Miralax) 17 gm PO DAILY PRN PRN Reason: Constipation Sodium Chloride (Saline Flush) 10 ml FLUSH ASDIRECTED PRN PRN Reason: Keep Vein Open Warfarin Sodium (Coumadin) 5 mg PO ONETIME ONE Stop: 06/27/20 16:57 Discontinued Medications Phytonadione 10 mg/ Sodium (Chloride) 51 mls @ 100 mls/hr IV NOW ONE Stop: 06/26/20 15:27 Last Admin: 06/26/20 15:28 Dose: 100 mls/hr Documented by: Ceftriaxone Sodium 1 gm/ (Sodium Chloride) 50 mls @ 100 mls/hr IV ONETIME ONE Stop: 06/26/20 17:29 Last Admin: 06/26/20 17:05 Dose: 100 mls/hr Documented by: Sodium Chloride (Normal Saline) 1,000 mls @ 125 mls/hr IV ASDIRECTED [facility] Last Admin: 06/27/20 04:33 Dose: 125 mls/hr Documented by: - Exam Quality Assessment: DVT Prophylaxis General: Alert, Oriented, Cooperative, No Acute Distress Lungs: Clear to Auscultation, Normal Respiratory Effort Cardiovascular: Regular Rate, Regular Rhythm, No Murmurs GI/Abdominal Exam: Soft, Non-Tender, No Organomegaly, No Distention Extremities: Non-Tender, No Pedal Edema Sepsis Event Note - Evaluation Sepsis Screening Result: No Definite Risk - Focused Exam Vital Signs: Vital Signs Temp Pulse Pulse Resp BP BP Pulse Ox 06/27/20 15:00 98.5 F 06/27/20 14:56 83 16 123/63 06/27/20 12:09 78 20 115/60 96 06/27/20 08:45 134/78 06/27/20 08:44 60 134/78 06/27/20 08:11 97.4 F 60 16 134/78 95 - Problem List Review Problem List Initiated/Reviewed/Updated: Yes - My Orders Last 24 Hours: My Active Orders 06/26/20 Dinner Consistent Carbohydrate Diet [DIET] 06/26/20 18:08 Resuscitation Status Routine 06/26/20 19:20 Acetaminophen [TylenoL] 650 mg PO Q4H PRN Dextrose 50% in Water 50 ml IV ONETIME PRN Dextrose [Glutose 15] 15 gm PO ONETIME PRN Ondansetron [Zofran] 4 mg IV Q4H PRN Sodium Chloride 0.9% [Saline Flush] 10 ml FLUSH ASDIRECTED PRN polyethylene glycoL 3350 [MiraLAX] 17 gm PO DAILY PRN 06/26/20 19:20 Patient Status [ADT] Routine Ambulate [RC] QID Diabetes Education [RC] Click to Edit Height and Weight [RC] 0500 Intake and Output [RC] QSHIFT Notify Provider Vital Signs [RC] ASDIRECTED Notify Provider [RC] PRN Oxygen Therapy [RC] PRN Peripheral IV Care [RC] . DIRECTED Up With Assistance [RC] ASDIRECTED Up to Chair [RC] QID Vital Signs [RC] Q4H PT Evaluation and Treatment [CONS] Routine Peripheral IV Insertion Adult [OM.PC] Routine VTE Pharmacological Contraindications [AST] Per Unit Routine 06/26/20 20:00 Insulin Lispro [HumaLOG] See Protocol SUBCUT QIDACANDBED 06/26/20 21:00 Metoprolol Tartrate [Lopressor] 50 mg PO BID 06/27/20 08:00 metFORMIN [Glucophage] 1,000 mg PO DAILY@0800 06/27/20 09:00 Finasteride [Proscar] 5 mg PO DAILY Furosemide [Lasix] 40 mg PO DAILY atorvaSTATin [Lipitor] 40 mg PO DAILY lisinopriL [Prinivil] 2.5 mg PO DAILY 06/27/20 13:02 Convert IV to Saline Lock [OM.PC] Routine 06/27/20 16:45 Enoxaparin [Lovenox] 80 mg SUBCUT Q12H 06/27/20 16:56 Warfarin [Coumadin] 5 mg PO ONETIME ONE 06/27/20 17:00 cefTRIAXone [Rocephin] 1 gm Sodium Chloride 0.9% [Normal Saline] 50 ml IV Q24H metFORMIN [Glucophage] 500 mg PO QPM 06/27/20 21:00 GLUCOSE POC LAB TO COLLECT JPM [POC] QIDACANDBED 06/28/20 05:00 INR,PT,PROTHROMBIN TIME [COAG] Timed 06/28/20 07:30 GLUCOSE POC LAB TO COLLECT JPM [POC] QIDACANDBED 06/28/20 11:30 GLUCOSE POC LAB TO COLLECT JPM [POC] QIDACANDBED 06/28/20 16:30 GLUCOSE POC LAB TO COLLECT JPM [POC] QIDACANDBED 06/28/20 21:00 GLUCOSE POC LAB TO COLLECT JPM [POC] QIDACANDBED 06/29/20 07:30 GLUCOSE POC LAB TO COLLECT JPM [POC] QIDACANDBED 06/29/20 11:30 GLUCOSE POC LAB TO COLLECT JPM [POC] QIDACANDBED 06/29/20 16:30 GLUCOSE POC LAB TO COLLECT JPM [POC] QIDACANDBED 06/29/20 21:00 GLUCOSE POC LAB TO COLLECT JPM [POC] QIDACANDBED 06/30/20 07:30 GLUCOSE POC LAB TO COLLECT JPM [POC] QIDACANDBED 06/30/20 11:30 GLUCOSE POC LAB TO COLLECT JPM [POC] QIDACANDBED 06/30/20 16:30 GLUCOSE POC LAB TO COLLECT JPM [POC] QIDACANDBED 06/30/20 21:00 GLUCOSE POC LAB TO COLLECT JPM [POC] QIDACANDBED 07/01/20 07:30 GLUCOSE POC LAB TO COLLECT JPM [POC] QIDACANDBED 07/01/20 11:30 GLUCOSE POC LAB TO COLLECT JPM [POC] QIDACANDBED 07/01/20 16:30 GLUCOSE POC LAB TO COLLECT JPM [POC] QIDACANDBED - Plan Plan:: ASSESSMENT AND PLAN URINARY TRACT INFECTION-weakness improved -Urine culture pending -Ceftriaxone 1 g IV every 24 hours GENERALIZED WEAKNESS-likely secondary to Covid as well as urinary tract infection. -Manage underlying medical problems -Physical therapy consult [id number] denies respiratory symptoms with no evidence of significant respiratory compromise or hypoxia -Supportive care -Monitor respiratory status -No active treatment at this time ELEVATED INR-INR low today following vitamin K given in the emergency department -Because of prosthetic valve will treat with Lovenox 80 mg subcu twice daily until INR is therapeutic -Warfarin 5 mg p.o. today -Reassess INR in a.m. TYPE 2 DIABETES MELLITUS -Continue Metformin -4 times daily glucometers -Low-dose sliding scale Humalog MAINTENANCE ISSUES -DVT prophylaxis; current elevated INR should provide adequate DVT prophylaxis -GI prophylaxis; not indicated -[place] catheter; not indicated -Nutrition; consistent carb diet -Nicotine dependence; not required CODE STATUS-FULL CODE ADMISSION STATUS-patient will be admitted to inpatient status, expect at least a 2 night hospital stay for evaluation and management of problems as outlined above. At the time of this admission I do not reasonably expected evaluation and management of this problem will require more than a 96 hour hospital stay. DISPOSITION-anticipate discharge to home after the hospital stay. PRIMARY CARE PROVIDER-
[2020-06-27] MEDS ORDERED: Warfarin 5 MG Tab PO ONE (18:00)
[2020-06-27] MEDS: Enoxaparin 80 MG/0.8 ML Syringe SUBCUT SCH (19:11)
[2020-06-28] MEDS: Enoxaparin 80 MG/0.8 ML Syringe SUBCUT SCH ×2 (05:43→17:25)
[2020-06-28] MEDS: Acetaminophen 325 MG Tab PO PRN ×3 (06:02→21:30)
[2020-06-28] MEDS: Insulin Lispro 100 Unit/ML 3 ML KwikPen SUBCUT SCH ×4 (07:30→21:28)
[2020-06-28] MEDS: metFORMIN 500 MG Tab PO SCH ×2 (08:30→17:24)
[2020-06-28] MEDS: Furosemide 40 MG Tab PO SCH (09:20)
[2020-06-28] MEDS: Finasteride 5 MG Tab PO SCH (09:20)
[2020-06-28] MEDS: atorvaSTATin 20 MG Tab PO SCH (09:20)
[2020-06-28] MEDS: Metoprolol Tartrate 50 MG Tab PO SCH ×2 (09:20→21:07)
[2020-06-28] MEDS: Lisinopril 2.5 MG Tab PO SCH (09:20)
[2020-06-28] MEDS ORDERED: Warfarin 2.5 MG Tab PO ONE (10:00)
[2020-06-28] MEDS: Ampicillin 500 MG Cap PO SCH ×3 (10:24→21:06)
[2020-06-28] MEDS: Calcium Carbonate 500 MG Tab.Chew PO PRN (10:24)
--- NOTE | 2020-06-28 17:03 | PCM.PN ---
- General Info Date of Service: 06/28/20 Subjective Update: Mr. Cano continues to feel fairly well and is slowly regaining strength as well as appetite. Currently denies any sort of respiratory symptoms and there has been no hypoxia. Vital signs have been stable and he has remained afebrile. Still requiring assistance of 1 for transfers and ambulation but overall much better than on admission. Functional Status: Reports: Tolerating Diet, Ambulating, Urinating - Review of Systems General: Reports: Weakness. Denies: Fever, Chills Pulmonary: Reports: No Symptoms Cardiovascular: Reports: No Symptoms Gastrointestinal: Reports: No Symptoms Genitourinary: Reports: No Symptoms - Patient Data Vitals - Most Recent: Last Vital Signs Temp 97.8 F 06/28/20 15:01 Pulse 60 06/28/20 15:01 Resp 16 06/28/20 15:01 BP 110/61 06/28/20 15:01 Pulse Ox 99 06/28/20 15:01 Orthostatic Blood Pressure [ 91/55 Standing] Orthostatic Blood Pressure [ 104/61 Sitting] Orthostatic Blood Pressure [ 122/61 Supine] Weight - Most Recent: 175 lb 4.8 oz I&O - Last 24 Hours: Intake & Output 06/28/20 06/28/20 06/28/20 06:59 14:59 22:59 Intake Total 150 480 Balance 150 480 Lab Results Last 24 Hours: Laboratory Results - last 24 hr 06/27/20 06/28/20 06/28/20 Range/Units 21:00 05:30 07:30 PT 11.9 (9.5-12.0) sec INR 1.09 (0.80-1.20) POC Glucose 128 H 122 H (74-106) MG/DL 06/28/20 06/28/20 Range/Units 11:43 16:42 PT (9.5-12.0) sec INR (0.80-1.20) POC Glucose 163 H 119 H (74-106) MG/DL Vipul Results Last 24 Hours: Microbiology 06/26/20 15:57 Urine Culture - Final Urine, Voided Enterococcus Faecalis Med Orders - Current: Current Medications Acetaminophen (Tylenol) 650 mg PO Q4H PRN PRN Reason: Pain (Mild 1-3)/fever Last Admin: 06/28/20 15:17 Dose: 650 mg Documented by: Ampicillin (Principen) 500 mg PO Q6H [facility] Last Admin: 06/28/20 15:30 Dose: 500 mg Documented by: Atorvastatin Calcium (Lipitor) 40 mg PO DAILY [facility] Last Admin: 06/28/20 09:20 Dose: 40 mg Documented by: Calcium Carbonate/Glycine (Tums) 500 mg PO Q2H PRN PRN Reason: Indigestion Last Admin: 06/28/20 10:24 Dose: 500 mg Documented by: Dextrose (Glutose 15) 15 gm PO ONETIME PRN PRN Reason: Hypoglycemia Dextrose/Water (Dextrose 50% In Water) 50 ml IV ONETIME PRN PRN Reason: Hypoglycemia Enoxaparin Sodium (Lovenox) 80 mg SUBCUT Q12H [facility] Last Admin: 06/28/20 05:43 Dose: 80 mg Documented by: Finasteride (Proscar) 5 mg PO DAILY [facility] Last Admin: 06/28/20 09:20 Dose: 5 mg Documented by: Furosemide (Lasix) 40 mg PO DAILY [facility] Last Admin: 06/28/20 09:20 Dose: 40 mg Documented by: Insulin Human Lispro (Humalog) 0 unit SUBCUT QIDACANDBED [facility]; Protocol Last Admin: 06/28/20 16:49 Dose: Not Given Documented by: Lisinopril (Prinivil) 2.5 mg PO DAILY [facility] Last Admin: 06/28/20 09:20 Dose: Not Given Documented by: Metformin HCl (Glucophage) 500 mg PO QPM [facility] Last Admin: 06/27/20 16:46 Dose: 500 mg Documented by: Metformin HCl (Glucophage) 1,000 mg PO DAILY@0800 [facility] Last Admin: 06/28/20 08:30 Dose: 1,000 mg Documented by: Metoprolol Tartrate (Lopressor) 50 mg PO BID [facility] Last Admin: 06/28/20 09:20 Dose: Not Given Documented by: Ondansetron HCl (Zofran) 4 mg IV Q4H PRN PRN Reason: Nausea/Vomiting Polyethylene Glycol (Miralax) 17 gm PO DAILY PRN PRN Reason: Constipation Sodium Chloride (Saline Flush) 10 ml FLUSH ASDIRECTED PRN PRN Reason: Keep Vein Open Discontinued Medications Phytonadione 10 mg/ Sodium (Chloride) 51 mls @ 100 mls/hr IV NOW ONE Stop: 06/26/20 15:27 Last Admin: 06/26/20 15:28 Dose: 100 mls/hr Documented by: Ceftriaxone Sodium 1 gm/ (Sodium Chloride) 50 mls @ 100 mls/hr IV ONETIME ONE Stop: 06/26/20 17:29 Last Admin: 06/26/20 17:05 Dose: 100 mls/hr Documented by: Sodium Chloride (Normal Saline) 1,000 mls @ 125 mls/hr IV ASDIRECTED [facility] Last Admin: 06/27/20 04:33 Dose: 125 mls/hr Documented by: Ceftriaxone Sodium 1 gm/ (Sodium Chloride) 50 mls @ 100 mls/hr IV Q24H [facility] Last Admin: 06/27/20 16:47 Dose: 100 mls/hr Documented by: Warfarin Sodium (Coumadin) 5 mg PO ONETIME ONE Stop: 06/27/20 18:01 Last Admin: 06/27/20 19:10 Dose: 5 mg Documented by: Warfarin Sodium (Coumadin) 7.5 mg PO ONETIME ONE Stop: 06/28/20 10:01 Last Admin: 06/28/20 10:25 Dose: 7.5 mg Documented by: - Exam Quality Assessment: DVT Prophylaxis. No: Supplemental Oxygen General: Alert, Oriented, Cooperative, No Acute Distress Lungs: Clear to Auscultation, Normal Respiratory Effort Cardiovascular: Regular Rate, Regular Rhythm, No Murmurs GI/Abdominal Exam: Soft, Non-Tender, No Organomegaly, No Distention Extremities: Non-Tender, No Pedal Edema Sepsis Event Note - Evaluation Sepsis Screening Result: No Definite Risk - Focused Exam Vital Signs: Vital Signs Temp Pulse Pulse Resp BP BP Pulse Ox 06/28/20 15:01 97.8 F 60 16 110/61 99 06/28/20 11:40 97.8 F 82 16 119/63 94 L 06/28/20 09:20 67 94/53 L 06/28/20 07:36 98.4 F 67 16 94/53 L 96 - Problem List Review Problem List Initiated/Reviewed/Updated: Yes - My Orders Last 24 Hours: My Active Orders 06/27/20 17:00 metFORMIN [Glucophage] 500 mg PO QPM 06/27/20 18:00 Enoxaparin [Lovenox] 80 mg SUBCUT Q12H 06/28/20 09:23 Calcium Carbonate [Tums] 500 mg PO Q2H PRN 06/28/20 10:00 Ampicillin [Principen] 500 mg PO Q6H 06/28/20 21:00 GLUCOSE POC LAB TO COLLECT JPM [POC] QIDACANDBED 06/29/20 05:11 INR,PT,PROTHROMBIN TIME [[facility]] AM 06/29/20 07:30 GLUCOSE POC LAB TO COLLECT JPM [POC] QIDACANDBED 06/29/20 11:30 GLUCOSE POC LAB TO COLLECT JPM [POC] QIDACANDBED 06/29/20 16:30 GLUCOSE POC LAB TO COLLECT JPM [POC] QIDACANDBED 06/29/20 21:00 GLUCOSE POC LAB TO COLLECT JPM [POC] QIDACANDBED 06/30/20 07:30 GLUCOSE POC LAB TO COLLECT JPM [POC] QIDACANDBED 06/30/20 11:30 GLUCOSE POC LAB TO COLLECT JPM [POC] QIDACANDBED 06/30/20 16:30 GLUCOSE POC LAB TO COLLECT JPM [POC] QIDACANDBED 06/30/20 21:00 GLUCOSE POC LAB TO COLLECT JPM [POC] QIDACANDBED 07/01/20 07:30 GLUCOSE POC LAB TO COLLECT JPM [POC] QIDACANDBED 07/01/20 11:30 GLUCOSE POC LAB TO COLLECT JPM [POC] QIDACANDBED 07/01/20 16:30 GLUCOSE POC LAB TO COLLECT JPM [POC] QIDACANDBED - Plan Plan:: ASSESSMENT AND PLAN URINARY TRACT INFECTION-weakness improved. Urine culture has grown Enterococcus -Urine culture pending -Discontinue ceftriaxone -Ampicillin 500 mg p.o. 4 times daily GENERALIZED WEAKNESS-likely secondary to Covid as well as urinary tract infection. Weakness has improved significantly from admission -Manage underlying medical problems -Physical therapy consult [id number] denies respiratory symptoms with no evidence of significant respiratory compromise or hypoxia -Supportive care -Monitor respiratory status -No active treatment at this time ELEVATED INR-INR remains subtherapeutic following vitamin K given in the emergency department -Because of prosthetic valve will treat with Lovenox 80 mg subcu twice daily until INR is therapeutic -Warfarin 7.5 mg p.o. today -Reassess INR in a.m. TYPE 2 DIABETES MELLITUS -Continue Metformin -4 times daily glucometers -Low-dose sliding scale Humalog MAINTENANCE ISSUES -DVT prophylaxis; current elevated INR should provide adequate DVT prophylaxis -GI prophylaxis; not indicated -Magaña catheter; not indicated -Nutrition; consistent carb diet -Nicotine dependence; not required CODE STATUS-FULL CODE ADMISSION STATUS-patient will be admitted to inpatient status, expect at least a 2 night hospital stay for evaluation and management of problems as outlined above. At the time of this admission I do not reasonably expected evaluation and management of this problem will require more than a 96 hour hospital stay. DISPOSITION-anticipate discharge to home after the hospital stay. PRIMARY CARE PROVIDER-
[2020-06-29] MEDS: Ampicillin 500 MG Cap PO SCH ×5 (02:44→21:10)
[2020-06-29] MEDS: Enoxaparin 80 MG/0.8 ML Syringe SUBCUT SCH ×2 (06:39→17:25)
[2020-06-29] MEDS: Insulin Lispro 100 Unit/ML 3 ML KwikPen SUBCUT SCH ×2 (07:45→11:45)
[2020-06-29] MEDS: Furosemide 40 MG Tab PO SCH (08:19)
[2020-06-29] MEDS: metFORMIN 500 MG Tab PO SCH ×2 (08:19→17:24)
[2020-06-29] MEDS: Finasteride 5 MG Tab PO SCH (08:20)
[2020-06-29] MEDS: atorvaSTATin 20 MG Tab PO SCH (08:20)
[2020-06-29] MEDS: Metoprolol Tartrate 50 MG Tab PO SCH ×2 (08:22→20:26)
[2020-06-29] MEDS: Lisinopril 2.5 MG Tab PO SCH (08:23)
[2020-06-29] MEDS ORDERED: Warfarin 5 MG Tab PO ONE (19:22)
--- NOTE | 2020-06-29 19:29 | PCM.PN ---
- General Info Date of Service: 06/29/20 Subjective Update: Mr. Cano has been stable over the last 24 hours. Vital signs have been within desired range and he has remained afebrile. Currently denies any urinary symptoms or respiratory symptoms. Functional Status: Reports: Tolerating Diet, Ambulating, Urinating - Review of Systems General: Reports: Weakness, Fatigue. Denies: Fever, Chills Pulmonary: Reports: No Symptoms Cardiovascular: Reports: No Symptoms Gastrointestinal: Reports: No Symptoms Genitourinary: Reports: No Symptoms - Patient Data Vitals - Most Recent: Last Vital Signs Temp 98.7 F 06/29/20 15:02 Pulse 60 06/29/20 15:02 Resp 16 06/29/20 15:02 BP 122/61 06/29/20 15:02 Pulse Ox 97 06/29/20 15:02 Orthostatic Blood Pressure [ 91/55 Standing] Orthostatic Blood Pressure [ 104/61 Sitting] Orthostatic Blood Pressure [ 122/61 Supine] Weight - Most Recent: 173 lb 4.8 oz I&O - Last 24 Hours: Intake & Output 06/29/20 06/29/20 06/29/20 06:59 14:59 22:59 Intake Total 860 1000 Balance 860 1000 Lab Results Last 24 Hours: Laboratory Results - last 24 hr 06/28/20 06/29/20 06/29/20 Range/Units 21:31 05:20 07:39 PT 14.5 H (9.5-12.0) sec INR 1.34 H (0.80-1.20) POC Glucose 158 H 117 H (74-106) MG/DL 06/29/20 06/29/20 Range/Units 11:23 16:30 PT (9.5-12.0) sec INR (0.80-1.20) POC Glucose 141 H 96 (74-106) MG/DL Med Orders - Current: Current Medications Acetaminophen (Tylenol) 650 mg PO Q4H PRN PRN Reason: Pain (Mild 1-3)/fever Last Admin: 06/28/20 21:30 Dose: 650 mg Documented by: Ampicillin (Principen) 500 mg PO Q6H [facility] Last Admin: 06/29/20 17:24 Dose: 500 mg Documented by: Atorvastatin Calcium (Lipitor) 40 mg PO DAILY [facility] Last Admin: 06/29/20 08:20 Dose: 40 mg Documented by: Calcium Carbonate/Glycine (Tums) 500 mg PO Q2H PRN PRN Reason: Indigestion Last Admin: 06/28/20 10:24 Dose: 500 mg Documented by: Dextrose (Glutose 15) 15 gm PO ONETIME PRN PRN Reason: Hypoglycemia Dextrose/Water (Dextrose 50% In Water) 50 ml IV ONETIME PRN PRN Reason: Hypoglycemia Enoxaparin Sodium (Lovenox) 80 mg SUBCUT Q12H [facility] Last Admin: 06/29/20 17:25 Dose: 80 mg Documented by: Finasteride (Proscar) 5 mg PO DAILY [facility] Last Admin: 06/29/20 08:20 Dose: 5 mg Documented by: Furosemide (Lasix) 40 mg PO DAILY [facility] Last Admin: 06/29/20 08:19 Dose: 40 mg Documented by: Lisinopril (Prinivil) 2.5 mg PO DAILY [facility] Last Admin: 06/29/20 08:23 Dose: Not Given Documented by: Metformin HCl (Glucophage) 500 mg PO QPM [facility] Last Admin: 06/29/20 17:24 Dose: 500 mg Documented by: Metformin HCl (Glucophage) 1,000 mg PO DAILY@0800 [facility] Last Admin: 06/29/20 08:19 Dose: 1,000 mg Documented by: Metoprolol Tartrate (Lopressor) 50 mg PO BID [facility] Last Admin: 06/29/20 08:22 Dose: Not Given Documented by: Ondansetron HCl (Zofran) 4 mg IV Q4H PRN PRN Reason: Nausea/Vomiting Polyethylene Glycol (Miralax) 17 gm PO DAILY PRN PRN Reason: Constipation Sodium Chloride (Saline Flush) 10 ml FLUSH ASDIRECTED PRN PRN Reason: Keep Vein Open Warfarin Sodium (Coumadin) 5 mg PO ONETIME ONE Stop: 06/29/20 19:23 Discontinued Medications Phytonadione 10 mg/ Sodium (Chloride) 51 mls @ 100 mls/hr IV NOW ONE Stop: 06/26/20 15:27 Last Admin: 06/26/20 15:28 Dose: 100 mls/hr Documented by: Ceftriaxone Sodium 1 gm/ (Sodium Chloride) 50 mls @ 100 mls/hr IV ONETIME ONE Stop: 06/26/20 17:29 Last Admin: 06/26/20 17:05 Dose: 100 mls/hr Documented by: Sodium Chloride (Normal Saline) 1,000 mls @ 125 mls/hr IV ASDIRECTED [facility] Last Admin: 06/27/20 04:33 Dose: 125 mls/hr Documented by: Ceftriaxone Sodium 1 gm/ (Sodium Chloride) 50 mls @ 100 mls/hr IV Q24H [facility] Last Admin: 06/27/20 16:47 Dose: 100 mls/hr Documented by: Insulin Human Lispro (Humalog) 0 unit SUBCUT QIDACANDBED [facility]; Protocol Last Admin: 06/29/20 11:45 Dose: Not Given Documented by: Warfarin Sodium (Coumadin) 5 mg PO ONETIME ONE Stop: 06/27/20 18:01 Last Admin: 06/27/20 19:10 Dose: 5 mg Documented by: Warfarin Sodium (Coumadin) 7.5 mg PO ONETIME ONE Stop: 06/28/20 10:01 Last Admin: 06/28/20 10:25 Dose: 7.5 mg Documented by: - Exam Quality Assessment: DVT Prophylaxis General: Alert, Oriented, Cooperative, No Acute Distress Lungs: Clear to Auscultation, Normal Respiratory Effort Cardiovascular: Regular Rate, Regular Rhythm, No Murmurs GI/Abdominal Exam: Soft, Non-Tender, No Organomegaly, No Distention Extremities: Non-Tender, No Pedal Edema Sepsis Event Note - Evaluation Sepsis Screening Result: No Definite Risk - Focused Exam Vital Signs: Vital Signs Temp Pulse Pulse Resp BP BP Pulse Ox 06/29/20 15:02 98.7 F 60 16 122/61 97 06/29/20 11:19 98 F 60 16 101/58 L 90 L 06/29/20 08:23 125/71 06/29/20 08:22 60 125/71 - Problem List Review Problem List Initiated/Reviewed/Updated: Yes - My Orders Last 24 Hours: My Active Orders 06/29/20 19:22 Warfarin [Coumadin] 5 mg PO ONETIME ONE 06/30/20 05:11 INR,PT,PROTHROMBIN TIME [[facility]] AM - Plan Plan:: ASSESSMENT AND PLAN URINARY TRACT INFECTION-weakness improved. Urine culture has grown Enterococcus -Ampicillin 500 mg p.o. 4 times daily GENERALIZED WEAKNESS-likely secondary to Covid as well as urinary tract infection. Weakness has improved from admission -Manage underlying medical problems -Physical therapy consult [id number] denies respiratory symptoms with no evidence of significant respiratory compromise or hypoxia -Supportive care -Monitor respiratory status -No active treatment at this time ELEVATED INR-INR remains subtherapeutic following vitamin K given in the emergency department -Because of prosthetic valve will treat with Lovenox 80 mg subcu twice daily until INR is therapeutic -Warfarin 5 mg p.o. today -Reassess INR in a.m. TYPE 2 DIABETES MELLITUS -Continue Metformin -4 times daily glucometers -Low-dose sliding scale Humalog MAINTENANCE ISSUES -DVT prophylaxis; current elevated INR should provide adequate DVT prophylaxis -GI prophylaxis; not indicated -Magaña catheter; not indicated -Nutrition; consistent carb diet -Nicotine dependence; not required CODE STATUS-FULL CODE ADMISSION STATUS-patient will be admitted to inpatient status, expect at least a 2 night hospital stay for evaluation and management of problems as outlined above. At the time of this admission I do not reasonably expected evaluation and management of this problem will require more than a 96 hour hospital stay. DISPOSITION-anticipate discharge to home after the hospital stay. PRIMARY CARE PROVIDER-
--- NOTE | 2020-06-29 19:49 | PCM.DCSUM1 ---
Discharge Summary - Hospital Course Brief History: Mr. Cano is an 84-year-old gentleman who was admitted through the emergency department with weakness secondary to COVID-19 and urinary tract infection. - Discharge Data Discharge Date: 06/30/20 Discharge Disposition: DC/Tfer to SNF 03 Condition: Fair - Referral to Home Health Primary Care Physician: PCP None - Discharge Diagnosis/Problem(s) (1) COVID-19 SNOMED Code(s): 567656074 ICD Code: U07.1 - COVID-19 Status: Acute Priority: High Current Visit: Yes (2) Elevated INR SNOMED Code(s): 417576692 ICD Code: R79.1 - ABNORMAL COAGULATION PROFILE Status: Acute Priority: High Current Visit: Yes (3) Generalized weakness SNOMED Code(s): 42967446 ICD Code: R53.1 - WEAKNESS Status: Acute Priority: Medium Current Visit: Yes (4) Urinary tract infection SNOMED Code(s): 60809478 ICD Code: N39.0 - URINARY TRACT INFECTION, SITE NOT SPECIFIED Status: Acute Priority: Medium Current Visit: Yes Qualifiers: Urinary tract infection type: acute cystitis Hematuria presence: without hematuria Qualified Code(s): N30.00 - Acute cystitis without hematuria (5) Type 2 diabetes mellitus SNOMED Code(s): 60936972 ICD Code: E11.9 - TYPE 2 DIABETES MELLITUS WITHOUT COMPLICATIONS Status: Chronic Current Visit: No - Patient Summary/Data Consults: Consultations 06/26/20 19:20 PT Evaluation and Treatment [CONS] Routine Please Evaluate and Treat. PT Reason for Consult: Weakness This query below is only for informational purposes and is not editable. Hospital Course: Mr. Cano is an 84-year-old gentleman who was admitted through the emergency department with weakness secondary to urinary tract infection and COVID-19. He has not felt well over the past week and a half and has become progressively more weak. He denies respiratory symptoms no shortness of breath or cough. He also denies any recent fever or chills. He has had a recent fall and several other episodes where he has come close to falling because of his weakness. On evaluation in the emergency department he is found to be Covid positive and also has evidence of urinary tract infection. 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 INR is markedly elevated at 9, he has had no evidence of active bleeding. He was given 10 mg of IV vitamin K while in the emergency department. Urine culture was obtained and he was started on IV antibiotic therapy with ceftriaxone. Ceftriaxone was continued after admission and he was given IV fluids initially for hydration. He improved significantly over the few days of hospitalization but still remains very weak. He had no significant respiratory symptoms while in the hospital and no evidence of hypoxia related to COVID-19. Urine culture did grow Enterococcus and he was transitioned to oral antibiotic therapy with ampicillin. On the day after admission INR was noted to become subtherapeutic secondary to vitamin K. He was started on Lovenox 80 mg subcu twice daily because of his prosthetic aortic valve. He received increased doses of warfarin, INR remains subtherapeutic at the time of discharge. He will be discharged to the senior living on Lovenox 120 mg subcu daily and will continue this until INR has been therapeutic for 2 days. He will resume his usual oral dosing of warfarin that he had been on prior to admission. He will receive an additional 3 days of oral ampicillin following discharge and will be on probiotic therapy twice daily. INR will be obtained daily at the senior living until it is been within therapeutic range for 2 days. He will receive daily physical therapy and occupational therapy while at the senior living. Activity will be as tolerated and he will resume his usual diet. Follow-up with primary care will be at the senior living as needed. - Patient Instructions Diet: Diabetic Diet Activity: As Tolerated Other/Special Instructions: Daily physical therapy and Occupational Therapy while at the senior living. Daily INR, until INR has been therapeutic for 2 days(therapeutic range of 2-3) - Discharge Plan *PRESCRIPTION DRUG MONITORING PROGRAM REVIEWED*: Not Applicable *COPY OF PRESCRIPTION DRUG MONITORING REPORT IN PATIENT ROCKY: Not Applicable Prescriptions/Med Rec: Lactobacillus Acidophilus [Acidophilus Probiotic] 1 each PO BID #60 capsule Enoxaparin [Lovenox] 120 mg SUBCUT Q24H #5 syringe Ampicillin [Principen] 500 mg PO Q6H #12 cap Home Medications: Home Meds Finasteride 5 mg PO DAILY 05/13/14 [History] Furosemide 40 mg PO DAILY 05/13/14 [History] Lisinopril 2.5 mg PO DAILY 05/13/14 [History] Metoprolol Tartrate 50 mg PO BID 05/13/14 [History] Warfarin [Coumadin] 5 mg PO MO 05/13/14 [History] atorvaSTATin [Lipitor] 40 mg PO DAILY 05/13/14 [History] metFORMIN [Glucophage] 1,000 mg PO QAM 05/13/14 [History] metFORMIN [Glucophage] 500 mg PO QPM 05/13/14 [History] Warfarin [Coumadin] 2.5 mg PO SUTUWETHFRSA 05/14/14 [History] Ampicillin [Principen] 500 mg PO Q6H #12 cap 06/29/20 [Rx] Enoxaparin [Lovenox] 120 mg SUBCUT Q24H #5 syringe 06/29/20 [Rx] Lactobacillus Acidophilus [Acidophilus Probiotic] 1 each PO BID #60 capsule 06/29/20 [Rx] - Discharge Summary/Plan Comment DC Time >30 min.: No - Patient Data Vitals - Most Recent: Last Vital Signs Temp 98.7 F 06/29/20 15:02 Pulse 60 06/29/20 15:02 Resp 16 06/29/20 15:02 BP 122/61 06/29/20 15:02 Pulse Ox 97 06/29/20 15:02 Orthostatic Blood Pressure [ 91/55 Standing] Orthostatic Blood Pressure [ 104/61 Sitting] Orthostatic Blood Pressure [ 122/61 Supine] Weight - Most Recent: 173 lb 4.8 oz I&O - Last 24 hours: Intake & Output 06/29/20 06/29/20 06/29/20 06:59 14:59 22:59 Intake Total 860 1000 Balance 860 1000 Lab Results - Last 24 hrs: Laboratory Results - last 24 hr 06/28/20 06/29/20 06/29/20 Range/Units 21:31 05:20 07:39 PT 14.5 H (9.5-12.0) sec INR 1.34 H (0.80-1.20) POC Glucose 158 H 117 H (74-106) MG/DL 06/29/20 06/29/20 Range/Units 11:23 16:30 PT (9.5-12.0) sec INR (0.80-1.20) POC Glucose 141 H 96 (74-106) MG/DL Med Orders - Current: Current Medications Acetaminophen (Tylenol) 650 mg PO Q4H PRN PRN Reason: Pain (Mild 1-3)/fever Last Admin: 06/28/20 21:30 Dose: 650 mg Documented by: Ampicillin (Principen) 500 mg PO Q6H [facility] Last Admin: 06/29/20 17:24 Dose: 500 mg Documented by: Atorvastatin Calcium (Lipitor) 40 mg PO DAILY [facility] Last Admin: 06/29/20 08:20 Dose: 40 mg Documented by: Calcium Carbonate/Glycine (Tums) 500 mg PO Q2H PRN PRN Reason: Indigestion Last Admin: 06/28/20 10:24 Dose: 500 mg Documented by: Dextrose (Glutose 15) 15 gm PO ONETIME PRN PRN Reason: Hypoglycemia Dextrose/Water (Dextrose 50% In Water) 50 ml IV ONETIME PRN PRN Reason: Hypoglycemia Enoxaparin Sodium (Lovenox) 80 mg SUBCUT Q12H [facility] Stop: 06/30/20 05:00 Last Admin: 06/29/20 17:25 Dose: 80 mg Documented by: Enoxaparin Sodium (Lovenox) 120 mg SUBCUT Q24H [facility] Finasteride (Proscar) 5 mg PO DAILY [facility] Last Admin: 06/29/20 08:20 Dose: 5 mg Documented by: Furosemide (Lasix) 40 mg PO DAILY [facility] Last Admin: 06/29/20 08:19 Dose: 40 mg Documented by: Lisinopril (Prinivil) 2.5 mg PO DAILY [facility] Last Admin: 06/29/20 08:23 Dose: Not Given Documented by: Metformin HCl (Glucophage) 500 mg PO QPM [facility] Last Admin: 06/29/20 17:24 Dose: 500 mg Documented by: Metformin HCl (Glucophage) 1,000 mg PO DAILY@0800 [facility] Last Admin: 06/29/20 08:19 Dose: 1,000 mg Documented by: Metoprolol Tartrate (Lopressor) 50 mg PO BID [facility] Last Admin: 06/29/20 08:22 Dose: Not Given Documented by: Ondansetron HCl (Zofran) 4 mg IV Q4H PRN PRN Reason: Nausea/Vomiting Polyethylene Glycol (Miralax) 17 gm PO DAILY PRN PRN Reason: Constipation Sodium Chloride (Saline Flush) 10 ml FLUSH ASDIRECTED PRN PRN Reason: Keep Vein Open Warfarin Sodium (Coumadin) 5 mg PO ONETIME ONE Stop: 06/29/20 19:23 Discontinued Medications Phytonadione 10 mg/ Sodium (Chloride) 51 mls @ 100 mls/hr IV NOW ONE Stop: 06/26/20 15:27 Last Admin: 06/26/20 15:28 Dose: 100 mls/hr Documented by: Ceftriaxone Sodium 1 gm/ (Sodium Chloride) 50 mls @ 100 mls/hr IV ONETIME ONE Stop: 06/26/20 17:29 Last Admin: 06/26/20 17:05 Dose: 100 mls/hr Documented by: Sodium Chloride (Normal Saline) 1,000 mls @ 125 mls/hr IV ASDIRECTED [facility] Last Admin: 06/27/20 04:33 Dose: 125 mls/hr Documented by: Ceftriaxone Sodium 1 gm/ (Sodium Chloride) 50 mls @ 100 mls/hr IV Q24H [facility] Last Admin: 06/27/20 16:47 Dose: 100 mls/hr Documented by: Insulin Human Lispro (Humalog) 0 unit SUBCUT QIDACANDBED [facility]; Protocol Last Admin: 06/29/20 11:45 Dose: Not Given Documented by: Warfarin Sodium (Coumadin) 5 mg PO ONETIME ONE Stop: 06/27/20 18:01 Last Admin: 06/27/20 19:10 Dose: 5 mg Documented by: Warfarin Sodium (Coumadin) 7.5 mg PO ONETIME ONE Stop: 06/28/20 10:01 Last Admin: 06/28/20 10:25 Dose: 7.5 mg Documented by: - Exam Quality Assessment: Reports: DVT Prophylaxis General: Reports: Alert, Oriented, Cooperative, No Acute Distress Lungs: Reports: Clear to Auscultation, Normal Respiratory Effort Cardiovascular: Reports: Regular Rate, Regular Rhythm, No Murmurs GI/Abdominal Exam: Soft, Non-Tender, No Organomegaly, No Distention Extremities: Non-Tender, No Pedal Edema *Q Meaningful Use (DIS) - VTE *Q VTE Pharmacological Contraindications *Q: High INR Value
[2020-06-29] MEDS: Acetaminophen 325 MG Tab PO PRN (22:41)
[2020-06-30] MEDS: Ampicillin 500 MG Cap PO SCH ×4 (03:10→21:03)
[2020-06-30] MEDS: Metoprolol Tartrate 50 MG Tab PO SCH ×2 (09:23→20:41)
[2020-06-30] MEDS: atorvaSTATin 20 MG Tab PO SCH (09:23)
[2020-06-30] MEDS: Enoxaparin 120 MG/0.8 ML Syringe SUBCUT SCH (09:23)
[2020-06-30] MEDS: Finasteride 5 MG Tab PO SCH (09:24)
[2020-06-30] MEDS: Furosemide 40 MG Tab PO SCH (09:24)
[2020-06-30] MEDS: Lisinopril 2.5 MG Tab PO SCH (09:24)
[2020-06-30] MEDS: metFORMIN 500 MG Tab PO SCH ×2 (09:24→17:42)
--- NOTE | 2020-06-30 11:59 | PCM.PN ---
- General Info Date of Service: 06/30/20 Admission Dx/Problem (Free Text): Weakness COVID 19 UTI Subjective Update: Patient was scheduled ot D/C to SNF today. Facility unable to accomodate due to staffing issues secondary to COVID 19. Patient is stable for discharge at earliest opportunity. Was noting some diarrhea today. Functional Status: Reports: Pain Controlled, Tolerating Diet, Ambulating - Review of Systems General: Reports: No Symptoms HEENT: Reports: No Symptoms Pulmonary: Reports: No Symptoms Cardiovascular: Reports: No Symptoms Gastrointestinal: Reports: Diarrhea - Patient Data Vitals - Most Recent: Last Vital Signs Temp 98.0 F 06/30/20 11:49 Pulse 60 06/30/20 11:49 Resp 18 06/30/20 11:49 BP 121/67 06/30/20 11:49 Pulse Ox 99 06/30/20 11:49 Orthostatic Blood Pressure [ 91/55 Standing] Orthostatic Blood Pressure [ 104/61 Sitting] Orthostatic Blood Pressure [ 122/61 Supine] Weight - Most Recent: 174 lb 3.2 oz I&O - Last 24 Hours: Intake & Output 06/29/20 06/30/20 06/30/20 22:59 06:59 14:59 Intake Total 1360 300 240 Balance 1360 300 240 Lab Results Last 24 Hours: Laboratory Results - last 24 hr 06/29/20 06/30/20 Range/Units 16:30 05:05 PT 21.5 H (9.5-12.0) sec INR 2.00 H (0.80-1.20) POC Glucose 96 (74-106) MG/DL Med Orders - Current: Current Medications Acetaminophen (Tylenol) 650 mg PO Q4H PRN PRN Reason: Pain (Mild 1-3)/fever Last Admin: 06/29/20 22:41 Dose: 650 mg Documented by: Ampicillin (Principen) 500 mg PO Q6H [facility] Last Admin: 06/30/20 09:25 Dose: 500 mg Documented by: Atorvastatin Calcium (Lipitor) 40 mg PO DAILY [facility] Last Admin: 06/30/20 09:23 Dose: 40 mg Documented by: Calcium Carbonate/Glycine (Tums) 500 mg PO Q2H PRN PRN Reason: Indigestion Last Admin: 06/28/20 10:24 Dose: 500 mg Documented by: Dextrose (Glutose 15) 15 gm PO ONETIME PRN PRN Reason: Hypoglycemia Dextrose/Water (Dextrose 50% In Water) 50 ml IV ONETIME PRN PRN Reason: Hypoglycemia Enoxaparin Sodium (Lovenox) 120 mg SUBCUT Q24H [facility] Last Admin: 06/30/20 09:23 Dose: 120 mg Documented by: Finasteride (Proscar) 5 mg PO DAILY [facility] Last Admin: 06/30/20 09:24 Dose: 5 mg Documented by: Furosemide (Lasix) 40 mg PO DAILY [facility] Last Admin: 06/30/20 09:24 Dose: 40 mg Documented by: Lisinopril (Prinivil) 2.5 mg PO DAILY [facility] Last Admin: 06/30/20 09:24 Dose: 2.5 mg Documented by: Metformin HCl (Glucophage) 500 mg PO QPM [facility] Last Admin: 06/29/20 17:24 Dose: 500 mg Documented by: Metformin HCl (Glucophage) 1,000 mg PO DAILY@0800 [facility] Last Admin: 06/30/20 09:24 Dose: 1,000 mg Documented by: Metoprolol Tartrate (Lopressor) 50 mg PO BID [facility] Last Admin: 06/30/20 09:23 Dose: 50 mg Documented by: Ondansetron HCl (Zofran) 4 mg IV Q4H PRN PRN Reason: Nausea/Vomiting Polyethylene Glycol (Miralax) 17 gm PO DAILY PRN PRN Reason: Constipation Sodium Chloride (Saline Flush) 10 ml FLUSH ASDIRECTED PRN PRN Reason: Keep Vein Open Discontinued Medications Enoxaparin Sodium (Lovenox) 80 mg SUBCUT Q12H [facility] Stop: 06/30/20 05:00 Last Admin: 06/29/20 17:25 Dose: 80 mg Documented by: Phytonadione 10 mg/ Sodium (Chloride) 51 mls @ 100 mls/hr IV NOW ONE Stop: 06/26/20 15:27 Last Admin: 06/26/20 15:28 Dose: 100 mls/hr Documented by: Ceftriaxone Sodium 1 gm/ (Sodium Chloride) 50 mls @ 100 mls/hr IV ONETIME ONE Stop: 06/26/20 17:29 Last Admin: 06/26/20 17:05 Dose: 100 mls/hr Documented by: Sodium Chloride (Normal Saline) 1,000 mls @ 125 mls/hr IV ASDIRECTED [facility] Last Admin: 06/27/20 04:33 Dose: 125 mls/hr Documented by: Ceftriaxone Sodium 1 gm/ (Sodium Chloride) 50 mls @ 100 mls/hr IV Q24H [facility] Last Admin: 06/27/20 16:47 Dose: 100 mls/hr Documented by: Insulin Human Lispro (Humalog) 0 unit SUBCUT QIDACANDBED [facility]; Protocol Last Admin: 06/29/20 11:45 Dose: Not Given Documented by: Warfarin Sodium (Coumadin) 5 mg PO ONETIME ONE Stop: 06/27/20 18:01 Last Admin: 06/27/20 19:10 Dose: 5 mg Documented by: Warfarin Sodium (Coumadin) 7.5 mg PO ONETIME ONE Stop: 06/28/20 10:01 Last Admin: 06/28/20 10:25 Dose: 7.5 mg Documented by: Warfarin Sodium (Coumadin) 5 mg PO ONETIME ONE Stop: 06/29/20 19:23 Last Admin: 06/29/20 20:26 Dose: 5 mg Documented by: - Exam Quality Assessment: DVT Prophylaxis. No: Supplemental Oxygen, Central Line/PICC, Urine Catheter General: Alert, Oriented, Cooperative, No Acute Distress Lungs: Clear to Auscultation Cardiovascular: Regular Rate, Regular Rhythm GI/Abdominal Exam: Normal Bowel Sounds Sepsis Event Note - Evaluation Sepsis Screening Result: No Definite Risk - Focused Exam Vital Signs: Vital Signs Temp Pulse Pulse Resp BP BP BP 06/30/20 11:49 98.0 F 60 18 121/67 06/30/20 09:24 138/70 06/30/20 09:23 60 138/70 06/30/20 07:00 96.7 F L 60 18 138/70 06/30/20 03:10 97.3 F 60 132/68 Pulse Ox 06/30/20 11:49 99 06/30/20 09:24 06/30/20 09:23 06/30/20 07:00 98 06/30/20 03:10 99 - Problem List Review Problem List Initiated/Reviewed/Updated: Yes - Plan Plan:: ASSESSMENT AND PLAN URINARY TRACT INFECTION-weakness improved. Urine culture has grown Enterococcus -Ampicillin 500 mg p.o. 4 times daily GENERALIZED WEAKNESS-likely secondary to Covid as well as urinary tract infection. Weakness has improved from admission -Manage underlying medical problems -Physical therapy to continue while here. 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 today -Reassess INR in a.m. TYPE 2 DIABETES MELLITUS -Continue Metformin -4 times daily glucometers -Low-dose sliding scale Humalog MAINTENANCE ISSUES -DVT prophylaxis; current elevated INR should provide adequate DVT prophylaxis -GI prophylaxis; not indicated -[place] catheter; not indicated -Nutrition; consistent carb diet -Nicotine dependence; not required CODE STATUS-FULL CODE ADMISSION STATUS-patient will be admitted to inpatient status, expect at least a 2 night hospital stay for evaluation and management of problems as outlined above. At the time of this admission I do not reasonably expected evaluation and management of this problem will require more than a 96 hour hospital stay. DISPOSITION-anticipate discharge to home with home care vs TCU/SNF after the hospital stay. PRIMARY CARE PROVIDER-
[2020-06-30] MEDS: Calcium Carbonate 500 MG Tab.Chew PO PRN (16:02)
[2020-06-30] MEDS: Lactobacillus Rhamnosus GG (Probiotic) Cap PO SCH (23:30)
[2020-06-30] MEDS: Loperamide 2 MG Cap PO PRN (23:30)
[2020-07-01] MEDS: Loperamide 2 MG Cap PO PRN (03:06)
[2020-07-01] MEDS: Ampicillin 500 MG Cap PO SCH ×4 (03:06→21:19)
[2020-07-01] MEDS: Acetaminophen 325 MG Tab PO PRN ×2 (03:12→21:19)
[2020-07-01] MEDS: Lisinopril 2.5 MG Tab PO SCH (09:13)
[2020-07-01] MEDS: Metoprolol Tartrate 50 MG Tab PO SCH ×2 (09:13→21:19)
[2020-07-01] MEDS: Furosemide 40 MG Tab PO SCH (09:13)
[2020-07-01] MEDS: Enoxaparin 120 MG/0.8 ML Syringe SUBCUT SCH (09:14)
[2020-07-01] MEDS: Finasteride 5 MG Tab PO SCH (09:14)
[2020-07-01] MEDS: atorvaSTATin 20 MG Tab PO SCH (09:14)
[2020-07-01] MEDS: Lactobacillus Rhamnosus GG (Probiotic) Cap PO SCH (09:14)
[2020-07-01] MEDS: metFORMIN 500 MG Tab PO SCH ×2 (09:33→17:24)
--- NOTE | 2020-07-01 11:11 | PCM.PN ---
- General Info Date of Service: 07/01/20 Admission Dx/Problem (Free Text): 1. Weakness 2. COVID 19 status Subjective Update: Patient awaiting placement. Clinically stable. Functional Status: Reports: Pain Controlled. Denies: New Symptoms - Review of Systems General: Reports: No Symptoms HEENT: Reports: No Symptoms Pulmonary: Reports: No Symptoms Cardiovascular: Reports: No Symptoms Gastrointestinal: Reports: Diarrhea Musculoskeletal: Reports: No Symptoms Skin: Reports: No Symptoms Neurological: Reports: No Symptoms Psychiatric: Reports: No Symptoms - Patient Data Vitals - Most Recent: Last Vital Signs Temp 97.7 F 07/01/20 08:46 Pulse 60 07/01/20 09:13 Resp 18 07/01/20 08:46 BP 124/65 07/01/20 09:13 Pulse Ox 94 L 07/01/20 03:06 Orthostatic Blood Pressure [ 91/55 Standing] Orthostatic Blood Pressure [ 104/61 Sitting] Orthostatic Blood Pressure [ 122/61 Supine] Weight - Most Recent: 174 lb 3.2 oz I&O - Last 24 Hours: Intake & Output 06/30/20 07/01/20 07/01/20 22:59 06:59 14:59 Intake Total 1000 240 Output Total 5 Balance 1000 235 Vipul Results Last 24 Hours: Microbiology 06/30/20 21:45 Clostridioides difficile (PCR) - Final Stool / Feces Med Orders - Current: Current Medications Acetaminophen (Tylenol) 650 mg PO Q4H PRN PRN Reason: Pain (Mild 1-3)/fever Last Admin: 07/01/20 03:12 Dose: 650 mg Documented by: Ampicillin (Principen) 500 mg PO Q6H COUNTS INCLUDE 234 BEDS AT THE [facility] Last Admin: 07/01/20 09:13 Dose: 500 mg Documented by: Atorvastatin Calcium (Lipitor) 40 mg PO DAILY COUNTS INCLUDE 234 BEDS AT THE [facility] Last Admin: 07/01/20 09:14 Dose: 40 mg Documented by: Calcium Carbonate/Glycine (Tums) 500 mg PO Q2H PRN PRN Reason: Indigestion Last Admin: 06/30/20 16:02 Dose: 500 mg Documented by: Dextrose (Glutose 15) 15 gm PO ONETIME PRN PRN Reason: Hypoglycemia Dextrose/Water (Dextrose 50% In Water) 50 ml IV ONETIME PRN PRN Reason: Hypoglycemia Enoxaparin Sodium (Lovenox) 120 mg SUBCUT Q24H COUNTS INCLUDE 234 BEDS AT THE [facility] Last Admin: 07/01/20 09:14 Dose: 120 mg Documented by: Finasteride (Proscar) 5 mg PO DAILY COUNTS INCLUDE 234 BEDS AT THE [facility] Last Admin: 07/01/20 09:14 Dose: 5 mg Documented by: Furosemide (Lasix) 40 mg PO DAILY COUNTS INCLUDE 234 BEDS AT THE [facility] Last Admin: 07/01/20 09:13 Dose: 40 mg Documented by: Lactobacillus Rhamnosus (Culturelle) 1 cap PO DAILY COUNTS INCLUDE 234 BEDS AT THE [facility] Last Admin: 07/01/20 09:14 Dose: 1 cap Documented by: Lisinopril (Prinivil) 2.5 mg PO DAILY COUNTS INCLUDE 234 BEDS AT THE [facility] Last Admin: 07/01/20 09:13 Dose: 2.5 mg Documented by: Loperamide HCl (Imodium) 2 mg PO ASDIRECTED PRN PRN Reason: Diarrhea Last Admin: 07/01/20 03:06 Dose: 2 mg Documented by: Metformin HCl (Glucophage) 500 mg PO QPM COUNTS INCLUDE 234 BEDS AT THE [facility] Last Admin: 06/30/20 17:42 Dose: 500 mg Documented by: Metformin HCl (Glucophage) 1,000 mg PO DAILY@0800 COUNTS INCLUDE 234 BEDS AT THE [facility] Last Admin: 07/01/20 09:33 Dose: 1,000 mg Documented by: Metoprolol Tartrate (Lopressor) 50 mg PO BID COUNTS INCLUDE 234 BEDS AT THE [facility] Last Admin: 07/01/20 09:13 Dose: 50 mg Documented by: Ondansetron HCl (Zofran) 4 mg IV Q4H PRN PRN Reason: Nausea/Vomiting Polyethylene Glycol (Miralax) 17 gm PO DAILY PRN PRN Reason: Constipation Sodium Chloride (Saline Flush) 10 ml FLUSH ASDIRECTED PRN PRN Reason: Keep Vein Open Discontinued Medications Enoxaparin Sodium (Lovenox) 80 mg SUBCUT Q12H COUNTS INCLUDE 234 BEDS AT THE [facility] Stop: 06/30/20 05:00 Last Admin: 06/29/20 17:25 Dose: 80 mg Documented by: Phytonadione 10 mg/ Sodium (Chloride) 51 mls @ 100 mls/hr IV NOW ONE Stop: 06/26/20 15:27 Last Admin: 06/26/20 15:28 Dose: 100 mls/hr Documented by: Ceftriaxone Sodium 1 gm/ (Sodium Chloride) 50 mls @ 100 mls/hr IV ONETIME ONE Stop: 06/26/20 17:29 Last Admin: 06/26/20 17:05 Dose: 100 mls/hr Documented by: Sodium Chloride (Normal Saline) 1,000 mls @ 125 mls/hr IV ASDIRECTED COUNTS INCLUDE 234 BEDS AT THE [facility] Last Admin: 06/27/20 04:33 Dose: 125 mls/hr Documented by: Ceftriaxone Sodium 1 gm/ (Sodium Chloride) 50 mls @ 100 mls/hr IV Q24H COUNTS INCLUDE 234 BEDS AT THE [facility] Last Admin: 06/27/20 16:47 Dose: 100 mls/hr Documented by: Insulin Human Lispro (Humalog) 0 unit SUBCUT QIDACANDBED COUNTS INCLUDE 234 BEDS AT THE [facility]; Protocol Last Admin: 06/29/20 11:45 Dose: Not Given Documented by: Warfarin Sodium (Coumadin) 5 mg PO ONETIME ONE Stop: 06/27/20 18:01 Last Admin: 06/27/20 19:10 Dose: 5 mg Documented by: Warfarin Sodium (Coumadin) 7.5 mg PO ONETIME ONE Stop: 06/28/20 10:01 Last Admin: 06/28/20 10:25 Dose: 7.5 mg Documented by: Warfarin Sodium (Coumadin) 5 mg PO ONETIME ONE Stop: 06/29/20 19:23 Last Admin: 06/29/20 20:26 Dose: 5 mg Documented by: - Exam Quality Assessment: DVT Prophylaxis. No: Supplemental Oxygen General: Alert, Oriented Lungs: Clear to Auscultation, Normal Respiratory Effort Cardiovascular: Regular Rate, Regular Rhythm GI/Abdominal Exam: Normal Bowel Sounds Sepsis Event Note - Evaluation Sepsis Screening Result: No Definite Risk - Focused Exam Vital Signs: Vital Signs Temp Pulse Pulse Resp BP BP Pulse Ox 07/01/20 09:13 60 124/65 07/01/20 08:46 97.7 F 60 18 124/65 07/01/20 03:06 97.1 F 14 109/60 94 L - Problem List Review Problem List Initiated/Reviewed/Updated: Yes - My Orders Last 24 Hours: My Active Orders 06/30/20 22:43 Loperamide [Imodium] 2 mg PO ASDIRECTED PRN 06/30/20 22:45 Lactobacillus Rhamnosus GG [Culturelle] 1 cap PO DAILY 07/01/20 08:50 CULTURE STOOL + SHIGATOX [RM] Routine OVA + PARASITE EXAM Urgent 07/01/20 10:34 OT Evaluation and Treatment [CONS] Routine - Plan Plan:: ASSESSMENT AND PLAN URINARY TRACT INFECTION-weakness improved. Urine culture has grown Enterococcus -Ampicillin 500 mg p.o. 4 times daily GENERALIZED WEAKNESS-likely secondary to Covid as well as urinary tract infection. Weakness has improved from admission -Manage underlying medical problems -Physical therapy to continue while here. May be candidate for Home Care if passes PT and OT -Did OK with PT and was felt to be candidate for home care services. patient needs to continue to give injections of lovenox and is reluctant and uncomfortable to do so. 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 today (INR 2.0 today) -Reassess INR in a.m. - If INR 2.0 or greater - could possibly D/C lovenox TYPE 2 DIABETES MELLITUS -Continue Metformin -4 times daily glucometers -Low-dose sliding scale Humalog MAINTENANCE ISSUES -DVT prophylaxis; current elevated INR should provide adequate DVT prophylaxis -GI prophylaxis; not indicated -Magaña catheter; not indicated -Nutrition; consistent carb diet -Nicotine dependence; not required CODE STATUS-FULL CODE ADMISSION STATUS-patient will be admitted to inpatient status, expect at least a 2 night hospital stay for evaluation and management of problems as outlined above. At the time of this admission I do not reasonably expected evaluation and management of this problem will require more than a 96 hour hospital stay. DISPOSITION-anticipate discharge to home with home care vs TCU/SNF after the hospital stay. PRIMARY CARE PROVIDER- Umesh Coronado M.D. Hospitalist 01 July 2020
[2020-07-01] MEDS ORDERED: Warfarin 5 MG Tab PO ONE (13:00)
[2020-07-02] MEDS: Ampicillin 500 MG Cap PO SCH ×4 (03:55→21:15)
[2020-07-02] MEDS: Acetaminophen 325 MG Tab PO PRN ×2 (08:02→21:14)
[2020-07-02] MEDS ORDERED: Atropine/Diphenoxylate 0.025-2.5 MG Tab PO PRN (09:42)
[2020-07-02] MEDS: Lisinopril 2.5 MG Tab PO SCH (09:47)
[2020-07-02] MEDS: metFORMIN 500 MG Tab PO SCH ×2 (09:47→17:30)
[2020-07-02] MEDS: Metoprolol Tartrate 50 MG Tab PO SCH ×2 (09:47→21:14)
[2020-07-02] MEDS: Lactobacillus Rhamnosus GG (Probiotic) Cap PO SCH (09:48)
[2020-07-02] MEDS: Finasteride 5 MG Tab PO SCH (09:48)
[2020-07-02] MEDS: Furosemide 40 MG Tab PO SCH (09:48)
[2020-07-02] MEDS: atorvaSTATin 20 MG Tab PO SCH (09:48)
--- NOTE | 2020-07-02 09:49 | PCM.PN ---
- General Info Date of Service: 07/02/20 Subjective Update: Mr. Cano has continued to experience symptoms of diarrhea and remains fairly weak. He has been receiving daily physical therapy. No care home beds available for safe discharge plan. Functional Status: Reports: Tolerating Diet, Ambulating, Urinating - Review of Systems General: Reports: Weakness, Fatigue. Denies: Fever, Chills Pulmonary: Reports: No Symptoms Cardiovascular: Reports: No Symptoms Gastrointestinal: Reports: Diarrhea. Denies: Abdominal Pain, Difficulty Swallowing, Nausea, Vomiting - Patient Data Vitals - Most Recent: Last Vital Signs Temp 98.0 F 07/02/20 07:15 Pulse 61 07/02/20 07:15 Resp 16 07/02/20 07:15 BP 119/61 07/02/20 07:15 Pulse Ox 90 L 07/02/20 07:15 Orthostatic Blood Pressure [ 91/55 Standing] Orthostatic Blood Pressure [ 104/61 Sitting] Orthostatic Blood Pressure [ 122/61 Supine] Weight - Most Recent: 173 lb 12.8 oz I&O - Last 24 Hours: Intake & Output 07/01/20 07/02/20 07/02/20 22:59 06:59 14:59 Intake Total 500 350 Balance 500 350 Lab Results Last 24 Hours: Laboratory Results - last 24 hr 07/02/20 Range/Units 08:00 PT 48.1 H (9.5-12.0) sec INR 4.55 H* D (0.80-1.20) Med Orders - Current: Current Medications Acetaminophen (Tylenol) 650 mg PO Q4H PRN PRN Reason: Pain (Mild 1-3)/fever Last Admin: 07/02/20 08:02 Dose: 650 mg Documented by: Ampicillin (Principen) 500 mg PO Q6H [facility] Last Admin: 07/02/20 03:55 Dose: 500 mg Documented by: Atorvastatin Calcium (Lipitor) 40 mg PO DAILY [facility] Last Admin: 07/01/20 09:14 Dose: 40 mg Documented by: Calcium Carbonate/Glycine (Tums) 500 mg PO Q2H PRN PRN Reason: Indigestion Last Admin: 06/30/20 16:02 Dose: 500 mg Documented by: Dextrose (Glutose 15) 15 gm PO ONETIME PRN PRN Reason: Hypoglycemia Dextrose/Water (Dextrose 50% In Water) 50 ml IV ONETIME PRN PRN Reason: Hypoglycemia Diphenoxylate HCl/Atropine (Lomotil 0.025-2.5 Mg) 1 tab PO QID PRN PRN Reason: Diarrhea Finasteride (Proscar) 5 mg PO DAILY [facility] Last Admin: 07/01/20 09:14 Dose: 5 mg Documented by: Furosemide (Lasix) 40 mg PO DAILY [facility] Last Admin: 07/01/20 09:13 Dose: 40 mg Documented by: Lactobacillus Rhamnosus (Culturelle) 1 cap PO DAILY [facility] Last Admin: 07/01/20 09:14 Dose: 1 cap Documented by: Lisinopril (Prinivil) 2.5 mg PO DAILY [facility] Last Admin: 07/01/20 09:13 Dose: 2.5 mg Documented by: Metformin HCl (Glucophage) 500 mg PO QPM [facility] Last Admin: 07/01/20 17:24 Dose: 500 mg Documented by: Metformin HCl (Glucophage) 1,000 mg PO DAILY@0800 [facility] Last Admin: 07/01/20 09:33 Dose: 1,000 mg Documented by: Metoprolol Tartrate (Lopressor) 50 mg PO BID [facility] Last Admin: 07/01/20 21:19 Dose: 50 mg Documented by: Ondansetron HCl (Zofran) 4 mg IV Q4H PRN PRN Reason: Nausea/Vomiting Polyethylene Glycol (Miralax) 17 gm PO DAILY PRN PRN Reason: Constipation Sodium Chloride (Saline Flush) 10 ml FLUSH ASDIRECTED PRN PRN Reason: Keep Vein Open Discontinued Medications Enoxaparin Sodium (Lovenox) 80 mg SUBCUT Q12H [facility] Stop: 06/30/20 05:00 Last Admin: 06/29/20 17:25 Dose: 80 mg Documented by: Enoxaparin Sodium (Lovenox) 120 mg SUBCUT Q24H [facility] Last Admin: 07/01/20 09:14 Dose: 120 mg Documented by: Phytonadione 10 mg/ Sodium (Chloride) 51 mls @ 100 mls/hr IV NOW ONE Stop: 06/26/20 15:27 Last Admin: 06/26/20 15:28 Dose: 100 mls/hr Documented by: Ceftriaxone Sodium 1 gm/ (Sodium Chloride) 50 mls @ 100 mls/hr IV ONETIME ONE Stop: 06/26/20 17:29 Last Admin: 06/26/20 17:05 Dose: 100 mls/hr Documented by: Sodium Chloride (Normal Saline) 1,000 mls @ 125 mls/hr IV ASDIRECTED [facility] Last Admin: 06/27/20 04:33 Dose: 125 mls/hr Documented by: Ceftriaxone Sodium 1 gm/ (Sodium Chloride) 50 mls @ 100 mls/hr IV Q24H [facility] Last Admin: 06/27/20 16:47 Dose: 100 mls/hr Documented by: Insulin Human Lispro (Humalog) 0 unit SUBCUT QIDACANDBED [facility]; Protocol Last Admin: 06/29/20 11:45 Dose: Not Given Documented by: Loperamide HCl (Imodium) 2 mg PO ASDIRECTED PRN PRN Reason: Diarrhea Last Admin: 07/01/20 03:06 Dose: 2 mg Documented by: Warfarin Sodium (Coumadin) 5 mg PO ONETIME ONE Stop: 06/27/20 18:01 Last Admin: 06/27/20 19:10 Dose: 5 mg Documented by: Warfarin Sodium (Coumadin) 7.5 mg PO ONETIME ONE Stop: 06/28/20 10:01 Last Admin: 06/28/20 10:25 Dose: 7.5 mg Documented by: Warfarin Sodium (Coumadin) 5 mg PO ONETIME ONE Stop: 06/29/20 19:23 Last Admin: 06/29/20 20:26 Dose: 5 mg Documented by: Warfarin Sodium (Coumadin) 5 mg PO ONETIME ONE Stop: 07/01/20 13:01 Last Admin: 07/01/20 13:32 Dose: 5 mg Documented by: - Exam Quality Assessment: DVT Prophylaxis General: Alert, Oriented, Cooperative, Mild Distress Lungs: Clear to Auscultation, Normal Respiratory Effort Cardiovascular: Regular Rate, Regular Rhythm, No Murmurs GI/Abdominal Exam: Soft, Non-Tender, No Organomegaly, No Distention Extremities: Non-Tender, No Pedal Edema Sepsis Event Note - Evaluation Sepsis Screening Result: No Definite Risk - Focused Exam Vital Signs: Vital Signs Temp Pulse Resp BP Pulse Ox 07/02/20 07:15 98.0 F 61 16 119/61 90 L 07/02/20 03:32 96.7 F L 72 16 105/67 96 07/02/20 00:15 97.2 F 61 16 103/57 L 98 - Problem List & Annotations (1) COVID-19 SNOMED Code(s): 086064059 Code(s): U07.1 - COVID-19 Status: Acute Priority: High Current Visit: Yes (2) Elevated INR SNOMED Code(s): 234257209 Code(s): R79.1 - ABNORMAL COAGULATION PROFILE Status: Acute Priority: High Current Visit: Yes (3) Generalized weakness SNOMED Code(s): 48635198 Code(s): R53.1 - WEAKNESS Status: Acute Priority: Medium Current Visit: Yes (4) Urinary tract infection SNOMED Code(s): 00258042 Code(s): N39.0 - URINARY TRACT INFECTION, SITE NOT SPECIFIED Status: Acute Priority: Medium Current Visit: Yes Qualifiers: Urinary tract infection type: acute cystitis Hematuria presence: without hematuria Qualified Code(s): N30.00 - Acute cystitis without hematuria (5) Type 2 diabetes mellitus SNOMED Code(s): 37355225 Code(s): E11.9 - TYPE 2 DIABETES MELLITUS WITHOUT COMPLICATIONS Status: Chronic Current Visit: No - Problem List Review Problem List Initiated/Reviewed/Updated: Yes - My Orders Last 24 Hours: My Active Orders 07/02/20 09:42 Atropine/Diphenoxylate [Lomotil 0.025-2.5 MG] 1 tab PO QID PRN - Plan Plan:: ASSESSMENT AND PLAN URINARY TRACT INFECTION-Urine culture has grown Enterococcus -Ampicillin 500 mg p.o. 4 times daily GENERALIZED WEAKNESS-likely secondary to Covid as well as urinary tract infection. Weakness has improved from admission -Manage underlying medical problems -Physical therapy to continue while here. May be candidate for Home Care if passes PT and OT -Did OK with PT and was felt to be candidate for home care services. Potential concerns for discharged home; patient had not been eating well and not taking medications on a regular basis - Will need SNF placement, beds currently available, consider swing bed status [id number] denies respiratory symptoms with no evidence of significant respiratory compromise or hypoxia -Supportive care -Monitor respiratory status -No active treatment at this time ELEVATED INR-INR is supratherapeutic today -Hold warfarin and Lovenox -Reassess INR in a.m. TYPE 2 DIABETES MELLITUS -Continue Metformin -4 times daily glucometers -Low-dose sliding scale Humalog MAINTENANCE ISSUES -DVT prophylaxis; current elevated INR should provide adequate DVT prophylaxis -GI prophylaxis; not indicated -Magaña catheter; not indicated -Nutrition; consistent carb diet -Nicotine dependence; not required CODE STATUS-FULL CODE ADMISSION STATUS-patient will be admitted to inpatient status, expect at least a 2 night hospital stay for evaluation and management of problems as outlined above. At the time of this admission I do not reasonably expected evaluation and management of this problem will require more than a 96 hour hospital stay. DISPOSITION-anticipate discharge to home with home care vs TCU/SNF after the hospital stay. PRIMARY CARE PROVIDER-
--- NOTE | 2020-07-02 14:21 | PCM.DCSUM1 ---
Discharge Summary - Hospital Course Brief History: Mr. Cano is an 84-year-old gentleman who was admitted through the emergency department with weakness secondary to COVID-19 and urinary tract infection. - Discharge Data Discharge Date: 07/03/20 Discharge Disposition: DC/Tfer to SNF 03 Condition: Fair - Referral to Home Health Primary Care Physician: PCP None - Discharge Diagnosis/Problem(s) (1) COVID-19 SNOMED Code(s): 777746261 ICD Code: U07.1 - COVID-19 Status: Acute Priority: High Current Visit: Yes (2) Elevated INR SNOMED Code(s): 111974931 ICD Code: R79.1 - ABNORMAL COAGULATION PROFILE Status: Acute Priority: High Current Visit: Yes (3) Generalized weakness SNOMED Code(s): 79661534 ICD Code: R53.1 - WEAKNESS Status: Acute Priority: Medium Current Visit: Yes (4) Urinary tract infection SNOMED Code(s): 79934114 ICD Code: N39.0 - URINARY TRACT INFECTION, SITE NOT SPECIFIED Status: Acute Priority: Medium Current Visit: Yes Qualifiers: Urinary tract infection type: acute cystitis Hematuria presence: without hematuria Qualified Code(s): N30.00 - Acute cystitis without hematuria (5) Type 2 diabetes mellitus SNOMED Code(s): 64523805 ICD Code: E11.9 - TYPE 2 DIABETES MELLITUS WITHOUT COMPLICATIONS Status: Chronic Current Visit: No - Patient Summary/Data Consults: Consultations 06/26/20 19:20 PT Evaluation and Treatment [CONS] Routine Please Evaluate and Treat. PT Reason for Consult: Weakness This query below is only for informational purposes and is not editable. 07/01/20 10:34 OT Evaluation and Treatment [CONS] Routine Please Evaluate and Treat. OT Reason for Consult: Discharge Planning Pending Discharge: Yes Discharge Disposition: Home w Home Health Special Instructions: assess cognitive status This query below is only for informational purposes and is not editable. Admission Diagnosis/Problem: UTI, Urinary tract infectious disease Hospital Course: Mr. Cano is an 84-year-old gentleman who was admitted through the emergency department with weakness secondary to urinary tract infection and COVID-19. He had not felt well over the past week and a half and had become progressively more weak. He denied respiratory symptoms no shortness of breath or cough. He also denies any recent fever or chills. He has had a recent fall and several other episodes where he has come close to falling because of his weakness. On evaluation in the emergency department he is found to be Covid positive and also had evidence of urinary tract infection. 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 INR is markedly elevated at 9, he has had no evidence of active bleeding. He was given 10 mg of IV vitamin K while in the emergency department. Urine culture was obtained and he was started on IV antibiotic therapy with ceftriaxone. Ceftriaxone was continued after admission and he was given IV fluids initially for hydration. He improved significantly over the few days of hospitalization but still remains very weak. He had no significant respiratory symptoms while in the hospital and no evidence of hypoxia related to COVID-19. Urine culture did grow Enterococcus and he was transitioned to oral antibiotic therapy with ampicillin. On the day after ad mission INR was noted to become subtherapeutic secondary to vitamin K. He was started on Lovenox 80 mg subcu twice daily because of his prosthetic aortic valve. He received increased doses of warfarin. On the day prior to discharge INR was noted to be supratherapeutic and warfarin was held. He will resume his usual oral dosing of warfarin that he had been on prior to admission. Time of discharge she had completed a full course of antibiotic therapy for his urinary tract infection and will not require antibiotics as an outpatient. INR will be obtained prior to discharge and on July 04. He will receive daily physical therapy and occupational therapy while at the snf. Activity will be as tolerated and he will resume his usual diet. Follow-up with primary care will be at the snf as needed. - Patient Instructions Diet: Diabetic Diet Activity: As Tolerated Other/Special Instructions: Daily physical therapy and Occupational Therapy while at the snf. Recheck INR on July 04. - Discharge Plan *PRESCRIPTION DRUG MONITORING PROGRAM REVIEWED*: Not Applicable *COPY OF PRESCRIPTION DRUG MONITORING REPORT IN PATIENT ROCKY: Not Applicable Prescriptions/Med Rec: Lactobacillus Acidophilus [Acidophilus Probiotic] 1 each PO BID #60 capsule Home Medications: Home Meds Finasteride 5 mg PO DAILY 05/13/14 [History] Furosemide 40 mg PO DAILY 05/13/14 [History] Lisinopril 2.5 mg PO DAILY 05/13/14 [History] Metoprolol Tartrate 50 mg PO BID 05/13/14 [History] Warfarin [Coumadin] 5 mg PO MO 05/13/14 [History] atorvaSTATin [Lipitor] 40 mg PO DAILY 05/13/14 [History] metFORMIN [Glucophage] 1,000 mg PO QAM 05/13/14 [History] metFORMIN [Glucophage] 500 mg PO QPM 05/13/14 [History] Warfarin [Coumadin] 2.5 mg PO SUTUWETHFRSA 05/14/14 [History] Lactobacillus Acidophilus [Acidophilus Probiotic] 1 each PO BID #60 capsule 06/29/20 [Rx] Atropine/Diphenoxylate [Diphenoxylate-Atropine] 1 tab PO QID PRN tablet 07/02/20 [Rx] Lactobacillus Rhamnosus GG [Culturelle] 1 cap PO DAILY cap 07/02/20 [Rx] - Discharge Summary/Plan Comment DC Time >30 min.: No - Patient Data Vitals - Most Recent: Last Vital Signs Temp 96.6 F L 07/02/20 11:25 Pulse 60 07/02/20 11:25 Resp 16 07/02/20 11:25 BP 98/58 L 07/02/20 11:25 Pulse Ox 100 07/02/20 11:25 Orthostatic Blood Pressure [ 91/55 Standing] Orthostatic Blood Pressure [ 104/61 Sitting] Orthostatic Blood Pressure [ 122/61 Supine] Weight - Most Recent: 173 lb 12.8 oz I&O - Last 24 hours: Intake & Output 07/01/20 07/02/20 07/02/20 22:59 06:59 14:59 Intake Total 500 350 360 Balance 500 350 360 Lab Results - Last 24 hrs: Laboratory Results - last 24 hr 07/02/20 Range/Units 08:00 PT 48.1 H (9.5-12.0) sec INR 4.55 H* D (0.80-1.20) Med Orders - Current: Current Medications Acetaminophen (Tylenol) 650 mg PO Q4H PRN PRN Reason: Pain (Mild 1-3)/fever Last Admin: 07/02/20 08:02 Dose: 650 mg Documented by: Ampicillin ([place]) 500 mg PO Q6H [place] Last Admin: 07/02/20 09:48 Dose: 500 mg Documented by: Atorvastatin Calcium (Lipitor) 40 mg PO DAILY [facility] Last Admin: 07/02/20 09:48 Dose: 40 mg Documented by: Calcium Carbonate/Glycine (Tums) 500 mg PO Q2H PRN PRN Reason: Indigestion Last Admin: 06/30/20 16:02 Dose: 500 mg Documented by: Dextrose (Glutose 15) 15 gm PO ONETIME PRN PRN Reason: Hypoglycemia Dextrose/Water (Dextrose 50% In Water) 50 ml IV ONETIME PRN PRN Reason: Hypoglycemia Diphenoxylate HCl/Atropine (Lomotil 0.025-2.5 Mg) 1 tab PO QID PRN PRN Reason: Diarrhea Last Admin: 07/02/20 09:59 Dose: 1 tab Documented by: Finasteride (Proscar) 5 mg PO DAILY [facility] Last Admin: 07/02/20 09:48 Dose: 5 mg Documented by: Furosemide (Lasix) 40 mg PO DAILY [facility] Last Admin: 07/02/20 09:48 Dose: 40 mg Documented by: Lactobacillus Rhamnosus (Culturelle) 1 cap PO DAILY [facility] Last Admin: 07/02/20 09:48 Dose: 1 cap Documented by: Lisinopril (Prinivil) 2.5 mg PO DAILY [facility] Last Admin: 07/02/20 09:47 Dose: 2.5 mg Documented by: Metformin HCl (Glucophage) 500 mg PO QPM [facility] Last Admin: 07/01/20 17:24 Dose: 500 mg Documented by: Metformin HCl (Glucophage) 1,000 mg PO DAILY@0800 [facility] Last Admin: 07/02/20 09:47 Dose: 1,000 mg Documented by: Metoprolol Tartrate (Lopressor) 50 mg PO BID [facility] Last Admin: 07/02/20 09:47 Dose: 50 mg Documented by: Ondansetron HCl (Zofran) 4 mg IV Q4H PRN PRN Reason: Nausea/Vomiting Polyethylene Glycol (Miralax) 17 gm PO DAILY PRN PRN Reason: Constipation Sodium Chloride (Saline Flush) 10 ml FLUSH ASDIRECTED PRN PRN Reason: Keep Vein Open Discontinued Medications Enoxaparin Sodium (Lovenox) 80 mg SUBCUT Q12H [facility] Stop: 06/30/20 05:00 Last Admin: 06/29/20 17:25 Dose: 80 mg Documented by: Enoxaparin Sodium (Lovenox) 120 mg SUBCUT Q24H [facility] Last Admin: 07/01/20 09:14 Dose: 120 mg Documented by: Phytonadione 10 mg/ Sodium (Chloride) 51 mls @ 100 mls/hr IV NOW ONE Stop: 06/26/20 15:27 Last Admin: 06/26/20 15:28 Dose: 100 mls/hr Documented by: Ceftriaxone Sodium 1 gm/ (Sodium Chloride) 50 mls @ 100 mls/hr IV ONETIME ONE Stop: 06/26/20 17:29 Last Admin: 06/26/20 17:05 Dose: 100 mls/hr Documented by: Sodium Chloride (Normal Saline) 1,000 mls @ 125 mls/hr IV ASDIRECTED [facility] Last Admin: 06/27/20 04:33 Dose: 125 mls/hr Documented by: Ceftriaxone Sodium 1 gm/ (Sodium Chloride) 50 mls @ 100 mls/hr IV Q24H [facility] Last Admin: 06/27/20 16:47 Dose: 100 mls/hr Documented by: Insulin Human Lispro (Humalog) 0 unit SUBCUT QIDACANDBED [facility]; Protocol Last Admin: 06/29/20 11:45 Dose: Not Given Documented by: Loperamide HCl (Imodium) 2 mg PO ASDIRECTED PRN PRN Reason: Diarrhea Last Admin: 07/01/20 03:06 Dose: 2 mg Documented by: Warfarin Sodium (Coumadin) 5 mg PO ONETIME ONE Stop: 06/27/20 18:01 Last Admin: 06/27/20 19:10 Dose: 5 mg Documented by: Warfarin Sodium (Coumadin) 7.5 mg PO ONETIME ONE Stop: 06/28/20 10:01 Last Admin: 06/28/20 10:25 Dose: 7.5 mg Documented by: Warfarin Sodium (Coumadin) 5 mg PO ONETIME ONE Stop: 06/29/20 19:23 Last Admin: 06/29/20 20:26 Dose: 5 mg Documented by: Warfarin Sodium (Coumadin) 5 mg PO ONETIME ONE Stop: 07/01/20 13:01 Last Admin: 07/01/20 13:32 Dose: 5 mg Documented by: - Exam General: Reports: Alert, Oriented, Cooperative, Mild Distress Lungs: Reports: Clear to Auscultation, Normal Respiratory Effort Cardiovascular: Reports: Regular Rate, Regular Rhythm, No Murmurs GI/Abdominal Exam: Soft, Non-Tender, No Organomegaly, No Distention Extremities: Non-Tender, No Pedal Edema *Q Meaningful Use (DIS) - VTE *Q VTE Pharmacological Contraindications *Q: High INR Value
[2020-07-02] MEDS: Atropine/Diphenoxylate 0.025-2.5 MG Tab PO PRN ×3 (16:02→21:15)
[2020-07-03] MEDS: Ampicillin 500 MG Cap PO SCH ×2 (03:02→09:02)
[2020-07-03] MEDS: Furosemide 40 MG Tab PO SCH (08:15)
[2020-07-03] MEDS: Finasteride 5 MG Tab PO SCH (08:15)
[2020-07-03] MEDS: Lactobacillus Rhamnosus GG (Probiotic) Cap PO SCH (08:15)
[2020-07-03] MEDS: metFORMIN 500 MG Tab PO SCH (08:15)
[2020-07-03] MEDS: atorvaSTATin 20 MG Tab PO SCH (08:15)
[2020-07-03] MEDS: Atropine/Diphenoxylate 0.025-2.5 MG Tab PO PRN (08:15)
[2020-07-03] MEDS ORDERED: Phytonadione 5 MG in Sodium Chloride 0.9% 50 ML IV ONE (08:15)
[2020-07-03] MEDS: Lisinopril 2.5 MG Tab PO SCH (08:16)
[2020-07-03] MEDS: Metoprolol Tartrate 50 MG Tab PO SCH (08:16)
--- NOTE | 2020-07-03 10:45 | PCM.SN.2 ---
- Free Text/Narrative Note: Patient anticipating D/C today. INR >8.0 on AM labs Ordered 5 mg IV vitamin K Will recheck INR around 1200 May give additional dose if needed with subsequent recheck Anticipating D/C later today. Umesh Coronado M.D. Hospitalist 07/03/2020
[2020-07-03 11:48] VITALS: BP 118/66; PULSE 63
[2020-07-03] MEDS: Calcium Carbonate 500 MG Tab.Chew PO PRN (13:59)
== END 2020-07-03 14:00 | DRG 178 ==
LOC: JP.ED 11:47 → JP.2SS 18:46
PROVIDERS: ADMIT Hospitalist; ATTEND Hospitalist
DX: U07.1 COVID-19 (principal); R42 Dizziness and giddiness; N30.00 Acute cystitis without hematuria; R53.1 Weakness; W19.XXXA Unspecified fall, initial encounter; N39.0 Urinary tract infection, site not specified; H91.90 Unspecified hearing loss, unspecified ear; R79.1 Abnormal coagulation profile; H54.7 Unspecified visual loss; I10 Essential (primary) hypertension; N40.0 Benign prostatic hyperplasia without lower urinary tract symptoms; E11.9 Type 2 diabetes mellitus without complications; B95.2 Enterococcus as the cause of diseases classified elsewhere; Z79.01 Long term (current) use of anticoagulants; Z79.899 Other long term (current) drug therapy; Z95.2 Presence of prosthetic heart valve; Z79.84 Long term (current) use of oral hypoglycemic drugs; Z95.0 Presence of cardiac pacemaker; Z86.73 Personal history of transient ischemic attack (TIA), and cerebral infarction without residual deficits; Z87.891 Personal history of nicotine dependence
CPT/HCPCS: 36415; 70450 ×2; 80053; 81001; 85025; 85610; 87086; 87088; 87186; 96365; 96367; 99285 ×2; J0696; J3430; U0002; 80048; 82962; 86140; 87046; 87077; 87177; 87209; 87493; 87899; 97110-GP; 97140-GP; 97162-GP; 97530-GP; 97535-GP; A9270-GY; J1650; J1815; J7030

== ENCOUNTER 2021-05-28 20:35 | Emergency (ER) | payer MEDICARE, BC ==
[2021-05-28 21:04] VITALS: PULSE 60
--- NOTE | 2021-05-28 21:09 | EDM.PDOC ---
ED HPI GENERAL MEDICAL PROBLEM - General Chief Complaint: General Stated Complaint[facility] Time Seen by Provider: 05/28/21 20:37 Source of Information: Reports: Patient, EMS, Care Home Records, Old Records History Limitations: Reports: No Limitations - History of Present Illness INITIAL COMMENTS - FREE TEXT/NARRATIVE: Is an 85-year-old male from [facility] assisted living via [facility] for evaluation of increased weakness, repeated falls, and head injury on Coumadin. The patient has been having more frequent falls in the assisted living. Yesterday he had 2 falls striking his head on the ground with one of them. There was no loss of consciousness, however, the patient is on anticoagulation for chronic atrial fibrillation and a prosthetic aortic valve. His INR is 3.1. He was started on Augmentin for a leg lesion yesterday. He normally sees Dr. Rico at the [facility] in [place]. He has had progressive worsening of his lower extremity edema despite having his Lasix increased to 80 mg a day and being started on spironolactone. He has had increased weakness to the point where he cannot even get out of bed. Normally this patient is able to ambulate all over the grounds and usually takes his who lives in the jail around the grounds with the wheelchair but it takes the assist of 1 to get him up out of bed in the assisted to to get him to ambulate. He has had no fever or chills, cough or shortness of breath, denies any chest pain, he has had no nausea, vomiting, but has had diarrhea for the last 24 hours. He does have numerous skin tears on extremities both upper and lower from his recent falls. He did have a fall today prior to being brought in. Previously had denied wanting to come in for evaluation and had refused EMS transporting him. - Related Data Allergies Allergy/AdvReac Type Severity Reaction Status Date / Time No Known Allergies Allergy Verified 05/28/21 20:42 Home Meds: Home Meds Finasteride 5 mg PO DAILY 05/13/14 [History] Furosemide 80 mg PO DAILY 05/13/14 [History] Metoprolol Tartrate 25 mg PO BID 05/13/14 [History] atorvaSTATin [Lipitor] 40 mg PO DAILY 05/13/14 [History] Warfarin [Coumadin] 2.5 mg PO DAILY 05/14/14 [History] Lactobacillus Acidophilus [Acidophilus Probiotic] 1 each PO BID #60 capsule 06/29/20 [Rx] Atropine/Diphenoxylate [Diphenoxylate-Atropine] 1 tab PO QID PRN tablet 07/02/20 [Rx] Lactobacillus Rhamnosus GG [Culturelle] 1 cap PO DAILY cap 07/02/20 [Rx] Amoxicillin/Clavulanate K [Augmentin 875-125 MG] 1 tab PO BID 05/28/21 [History] Gabapentin [Neurontin] 100 mg PO TID 05/28/21 [History] Spironolactone [Aldactone] 6.25 mg PO DAILY 05/28/21 [History] glipiZIDE [glipiZIDE XL] 5 mg PO DAILY 05/28/21 [History] Past Medical History HEENT History: Reports: Hard of Hearing, Impaired Vision Cardiovascular History: Reports: Heart Failure, Heart Valve Replacement, Hypertension, Pacemaker Genitourinary History: Reports: BPH Neurological History: Reports: CVA Psychiatric History: Reports: Dementia Endocrine/Metabolic History: Reports: Diabetes, Type II Hematologic History: Reports: Anticoagulation Therapy - Infectious Disease History Infectious Disease History: Reports: Chicken Pox, Measles, Mumps - Past Surgical History Head Surgeries/Procedures: Reports: None Cardiovascular Surgical History: Reports: Pacer, Vascular Surgery Social & Family History - Family History Family Medical History: Unobtainable - Tobacco Use Tobacco Use Status *Q: Never Tobacco User - Caffeine Use Caffeine Use: Reports: Coffee - Recreational Drug Use Recreational Drug Use: No ED ROS GENERAL - Review of Systems Review Of Systems: See Below Constitutional: Reports: Malaise, Weakness (Generalized), Fatigue HEENT: Reports: No Symptoms Respiratory: Reports: No Symptoms Cardiovascular: Reports: Edema (4+ pitting edema in the lower extremities) Endocrine: Reports: Fatigue GI/Abdominal: Reports: Diarrhea : Reports: No Symptoms Musculoskeletal: Reports: No Symptoms, Leg Pain (Secondary to 4+ edema) Skin: Reports: Erythema (Erythema of the legs) Neurological: Reports: Difficulty Walking (Patient unable to ambulate which is unusual as he usually is able to get up and manage his own cares. Today he was unable to get out of bed.), Weakness Psychiatric: Reports: No Symptoms Hematologic/Lymphatic: Reports: No Symptoms Immunologic: Reports: No Symptoms ED EXAM, GENERAL - Physical Exam Exam: See Below Exam Limited By: No Limitations General Appearance: Alert, Lethargic, Mild Distress Eye Exam: Bilateral Eye: EOMI, PERRL Nose: Normal Inspection, Normal Mucosa Throat/Mouth: Normal Inspection, Normal Oropharynx, Normal Voice, No Airway Compromise Head: Normocephalic, Other (Ecchymosis over the upper midline occipital region and at the vertex from previous fall and hitting the head. There is no step- off. There is no arias sign) Neck: Normal Inspection, Supple Respiratory/Chest: No Respiratory Distress, Lungs Clear, Normal Breath Sounds Cardiovascular: Normal Peripheral Pulses, Systolic Murmur (Grade 3/6 ejection murmur from a prosthetic aortic valve), Irregularly Irregular, Other (4+ pitting edema both lower extremities from the feet to the knees) Peripheral Pulses: 2+: Radial (L), Radial (R) GI/Abdominal: Soft, Non-Tender, Abnormal Bowel Sounds (Hyperactive bowel sounds). No: No Distention, Guarding, Rebound Extremities: Pedal Edema (4+ bilateral edema from feet to the knees) Neurological: Alert, Oriented, Normal Cognition, No Motor/Sensory Deficits Psychiatric: Normal Affect, Normal Mood Skin Exam: Warm, Dry, Erythema (Erythema of both lower extremities. Patient was started on Augmentin for cellulitis yesterday by Dr. Rico.) #1 Interpretation EKG Date: 05/28/21 Time: 21:28 Rhythm: A-Fib Rate (Beats/Min): 60 P-Wave: Absent QRS: Wide (Ventricular paced rhythm) Comparison: No Change (No change when compared to previous EKG on 09/06/2016.) Course - Vital Signs Last Recorded V/S: Last Vital Signs Temp 36.3 C 05/28/21 20:52 Pulse 60 05/28/21 20:52 Resp 14 05/28/21 20:52 BP 108/45 L 05/28/21 20:52 Pulse Ox 94 L 05/28/21 20:52 - Orders/Labs/Meds Orders: Active Orders 24 hr Category Date Time Status Chest 2V [CR] Stat Exams 05/28/21 20:37 Taken UA W/MICROSCOPIC [URIN] Stat Lab 05/28/21 20:37 Ordered EKG 12 Lead [EK] Routine Ther 05/28/21 20:37 Ordered Labs: Laboratory Tests 05/28/21 05/28/21 05/28/21 Range/Units 20:52 20:52 20:52 WBC 10.8 (4.5-11.0) K/uL RBC 3.58 L (4.30-5.90) M/uL Hgb 9.3 L (12.0-15.0) g/dL Hct 29.0 L (40.0-54.0) % MCV 81 (80-98) fL MCH 26 L (27-31) pg MCHC 32 (32-36) % Plt Count 167 (150-400) K/uL Neut % (Auto) 79.2 H (36-66) % Lymph % (Auto) 6.1 L (24-44) % Stone % (Auto) 11.5 H (2-6) % Eos % (Auto) 2.6 (2-4) % Baso % (Auto) 0.6 (0-1) % PT 30.8 H (9.2-10.6) sec INR 3.1 Sodium 139 L (140-148) mmol/L Potassium 3.9 (3.6-5.2) mmol/L Chloride 103 (100-108) mmol/L Carbon Dioxide 25 (21-32) mmol/L Anion Gap 14.9 H (5.0-14.0) mmol/L BUN 46 H D (7-18) mg/dL Creatinine 1.8 H (0.8-1.3) mg/dL Est Cr Clr Drug Dosing TNP Estimated GFR (MDRD) 36 L (>60) Glucose 213 H (74-106) mg/dL Lactic Acid (0.4-2.0) mmol/L Calcium 7.9 L (8.5-10.1) mg/dL Total Bilirubin 1.4 H (0.2-1.0) mg/dL AST 33 (15-37) U/L ALT 56 D (12-78) U/L Alkaline Phosphatase 91 (46-116) U/L Troponin I 0.065 H* (0.000-0.056) ng/mL NT-Pro-B Natriuret Pep 98464 H (5-450) pg/mL Total Protein 5.5 L (6.4-8.2) g/dL Albumin 2.9 L (3.4-5.0) g/dL Globulin 2.6 (2.3-3.5) g/dL Albumin/Globulin Ratio 1.1 L (1.2-2.2) SARS CoV-2 RNA Rapid MARTIN 05/28/21 05/28/21 Range/Units 20:52 21:31 WBC (4.5-11.0) K/uL RBC (4.30-5.90) M/uL Hgb (12.0-15.0) g/dL Hct (40.0-54.0) % MCV (80-98) fL MCH (27-31) pg MCHC (32-36) % Plt Count (150-400) K/uL Neut % (Auto) (36-66) % Lymph % (Auto) (24-44) % Stone % (Auto) (2-6) % Eos % (Auto) (2-4) % Baso % (Auto) (0-1) % PT (9.2-10.6) sec INR Sodium (140-148) mmol/L Potassium (3.6-5.2) mmol/L Chloride (100-108) mmol/L Carbon Dioxide (21-32) mmol/L Anion Gap (5.0-14.0) mmol/L BUN (7-18) mg/dL Creatinine (0.8-1.3) mg/dL Est Cr Clr Drug Dosing Estimated GFR (MDRD) (>60) Glucose (74-106) mg/dL Lactic Acid 1.3 (0.4-2.0) mmol/L Calcium (8.5-10.1) mg/dL Total Bilirubin (0.2-1.0) mg/dL AST (15-37) U/L ALT (12-78) U/L Alkaline Phosphatase (46-116) U/L Troponin I (0.000-0.056) ng/mL NT-Pro-B Natriuret Pep (5-450) pg/mL Total Protein (6.4-8.2) g/dL Albumin (3.4-5.0) g/dL Globulin (2.3-3.5) g/dL Albumin/Globulin Ratio (1.2-2.2) SARS CoV-2 RNA Rapid MARTIN Negative Meds: Medications Discontinued Medications Generic Name Dose Route Start Last Admin Trade Name Freq PRN Reason Stop Dose Admin Metolazone 2.5 mg 05/28/21 23:00 05/28/21 23:18 Metolazone 2.5 Mg Tab PO 05/28/21 23:01 2.5 mg ONETIME ONE Administration - Radiology Interpretation Free Text/Narrative:: Reviewed the CT of the head images without contrast as well as the report. The report is as follows: There is no evidence of intracranial hemorrhage or cerebral edema. Zamora-white matter differentiation is preserved. Stable old lacunar infarcts are noted in the right caudate nucleus and putamen. The ventricles are normal size. The basal cisterns are patent. The calvarium is intact. The visualized paranasal sinuses and mastoid air cells are aerated. Impression: No acute intracranial process. Signed Gladys Wild MD at 05/28/2021 9:44 PM - Re-Assessments/Exams Free Text/Narrative Re-Assessment/Exam: 05/28/21 23:24 chest x-ray was reviewed showing significant bilateral pulmonary edema. An AICD has been placed. There is mild to moderate cardiomegaly. No acute infiltrates. I reviewed the patient's labs showing a leukocyte count of 10.8 with a hemoglobin of 9.3 and a hematocrit of 29.0. His platelet count is 167,000. Patient's comprehensive metabolic panel shows a sodium 139, potassium 3.9, chloride 103, bicarbonate 25, BUN of 46 with a creatinine of 1.8 and a glucose of 213. His INR is 3.1. His calcium is 7.9 with an albumin of 2.9 given a corrected calcium of 8.4. His BNP is 10,023 and his troponin I is elevated at 0.065. This is likely due to his heart failure and LV strain. He is COVID-19 negative. His EKG shows atrial fibrillation with a ventricular paced rhythm. No further information can be obtained from this at this time. Given the patient's physical findings of elevated JVP at 6 cm sitting at 45 degrees, 4+ pitting edema of bilateral lower extremities to the knees, and pulmonary edema on his chest x-ray, we added Zaroxolyn 2.5 mg p.o. to to help try to diurese him. At this time because of his generalized weakness he will require hospitalization, however, we are full so I will try to reach out and find a suitable hospital to transfer him. 05/29/21 01:13 I discussed the case with Dr. Duarte, hospitalist at [facility] who recommended I call back after 7 AM to talk to the day crew about admission. They do have beds available, however, he deferred acceptance to the day crew. We will continue to board the patient in the ER until we can find a suitable bed for treatment. 05/29/21 02:12 I discussed the case with Dr. Bourgeois, hospitalist from [facility] in [place], [place] who accepts the patient in transfer for further care. Departure - Departure Time of Disposition: 02:15 Disposition: DC/Tfer to [facility] 02 Clinical Impression: Pulmonary edema cardiac cause, Peripheral edema, Elevated troponin, Recurrent falls, Generalized weakness, Hx of aortic valve replacement Congestive heart failure Qualifiers: Heart failure type: combined systolic and diastolic Heart failure chronicity: acute on chronic Qualified Code(s): I50.43 - Acute on chronic combined systolic (congestive) and diastolic (congestive) heart failure Chronic renal insufficiency, stage III (moderate) Qualifiers: Chronic kidney disease stage 3 subtype: stage 3b (GFR 30-44) Qualified Code(s): N18.32 - Chronic kidney disease, stage 3b Type 2 diabetes mellitus Qualifiers: Diabetes mellitus long term care pharmacist insulin use: without long term care pharmacist use Diabetes mellitus complication status: with kidney complications Diabetes mellitus complication detail: with chronic kidney disease Chronic kidney disease stage: stage 3 (moderate) Chronic kidney disease stage 3 subtype: stage 3b (GFR 30-44) Qualified Code(s): E11.22 - Type 2 diabetes mellitus with diabetic chronic kidney disease; N18.32 - Chronic kidney disease, stage 3b - Discharge Information Referrals: Jacob Rico MD [Primary Care Provider] - Forms: ED Department Discharge Sepsis Event Note (ED) - Evaluation Sepsis Screening Result: No Definite Risk - Focused Exam Vital Signs: Vital Signs Temp Pulse Resp BP Pulse Ox 05/28/21 20:52 36.3 C 60 14 108/45 L 94 L - Problem List & Annotations (1) Hx of aortic valve replacement SNOMED Code(s): 8493272079169, 859159583, 8021299445820 Code(s): Z95.2 - PRESENCE OF PROSTHETIC HEART VALVE Status: Chronic Prio rity: Medium Current Visit: No (2) Chronic anticoagulation SNOMED Code(s): 182929763 Code(s): Z79.01 - HALF-WAY (CURRENT) USE OF ANTICOAGULANTS Status: Chronic Priority: Medium Current Visit: No (3) Chronic renal insufficiency, stage III (moderate) SNOMED Code(s): 529357830 Code(s): N18.30 - CHRONIC KIDNEY DISEASE, STAGE 3 UNSPECIFIED Status: Chronic Priority: Medium Current Visit: Yes Qualifiers: Chronic kidney disease stage 3 subtype: stage 3b (GFR 30-44) Qualified Code(s): N18.32 - Chronic kidney disease, stage 3b (4) Congestive heart failure SNOMED Code(s): 62431208 Code(s): I50.9 - HEART FAILURE, UNSPECIFIED Status: Acute Priority: High Current Visit: Yes Qualifiers: Heart failure type: combined systolic and diastolic Heart failure chronicity: acute on chronic Qualified Code(s): I50.43 - Acute on chronic combined systolic (congestive) and diastolic (congestive) heart failure (5) Elevated troponin SNOMED Code(s): 865318583, 471611721, 834525902 Code(s): R77.8 - OTHER SPECIFIED ABNORMALITIES OF PLASMA PROTEINS Status: Acute Priority: High Current Visit: Yes (6) Peripheral edema SNOMED Code(s): 172360307 Code(s): R60.9 - EDEMA, UNSPECIFIED Status: Acute Priority: High Current Visit: Yes (7) Pulmonary edema cardiac cause SNOMED Code(s): 12296151, 22077952 Code(s): I50.1 - LEFT VENTRICULAR FAILURE, UNSPECIFIED Status: Acute Pr iority: High Current Visit: Yes (8) Recurrent falls SNOMED Code(s): 903336795 Code(s): R29.6 - REPEATED FALLS Status: Acute Priority: High Current Visit: Yes - Problem List Review Problem List Initiated/Reviewed/Updated: Yes - My Orders Last 24 Hours: My Active Orders 05/28/21 20:37 Chest 2V [CR] Stat UA W/MICROSCOPIC [URIN] Stat EKG 12 Lead [EK] Routine - Assessment/Plan Last 24 Hours: My Active Orders 05/28/21 20:37 Chest 2V [CR] Stat UA W/MICROSCOPIC [URIN] Stat EKG 12 Lead [EK] Routine
--- NOTE | 2021-05-28 21:44 | CRLCT ---
For Patients: As a result of the Century Cures Act, medical imaging exams and procedure reports are released immediately into your electronic medical record. You may view this report before your referring provider. If you have questions, please contact your health care provider. Indication: Fall, head injury, on Coumadin Technique: Nonenhanced axial CT imaging through the head. Sagittal and coronal reconstructions are provided. Comparison: CT head without contrast 06/26/2020 Findings: There is no evidence of intracranial hemorrhage or cerebral edema. Zamora-white matter differentiation is preserved. Stable old lacunar infarcts are noted in the right caudate nucleus and putamen. The ventricles are normal in size. The basal cisterns are patent. The calvarium is intact. The visualized paranasal sinuses and mastoid air cells are aerated. Impression: No acute intracranial process. Please note that all CT scans at this facility use dose modulation, iterative reconstruction, and/or weight-based dosing when appropriate to reduce radiation dose to as low as reasonably achievable. Dictated by Krupa Wild MD @ 05/28/2021 9:44:02 PM (Electronically Signed)
[2021-05-28] MEDS ORDERED: Metolazone 2.5 MG Tab PO ONE (23:00)
[2021-05-29 03:03] VITALS: BP 115/77
--- NOTE | 2021-05-29 08:55 | CR ---
CHEST: 2 view CLINICAL HISTORY:Weakness COMPARISON:None FINDINGS: The heart is mildly enlarged. Patient has a prosthetic aortic valve. There is a permanent cardiac pacer. There is mild generalized prominence lung markings. This may be chronic. IMPRESSION: Mild generalized prominence of the interstitial markings. This may be chronic. Mild pneumonitis or pulmonary edema is not excluded.
== END 2021-05-29 06:38 ==
LOC: JP.ED 20:35
DX: I13.0 Hypertensive heart and chronic kidney disease with heart failure and stage 1 through stage 4 chronic kidney disease, or unspecified chronic kidney disease (principal); E11.22 Type 2 diabetes mellitus with diabetic chronic kidney disease; N18.30 Chronic kidney disease, stage 3 unspecified; I50.43 Acute on chronic combined systolic (congestive) and diastolic (congestive) heart failure; R79.89 Other specified abnormal findings of blood chemistry; R53.1 Weakness; I48.91 Unspecified atrial fibrillation; F03.90 Unspecified dementia, unspecified severity, without behavioral disturbance, psychotic disturbance, mood disturbance, and anxiety; Z95.2 Presence of prosthetic heart valve; Z79.01 Long term (current) use of anticoagulants; Z79.84 Long term (current) use of oral hypoglycemic drugs; Z79.899 Other long term (current) drug therapy; Z20.822 Contact with and (suspected) exposure to COVID-19
CPT/HCPCS: 36415; 70450; 71046; 80053; 81001; 83605; 83880; 84484; 85025; 85610; 93005; 99285; A9270; U0002

== ENCOUNTER 2021-06-30 10:11 | Day surgery (SDC) | payer MEDICARE, BC ==
[~2021-06-30 10:11] MED LIST: Bupivacaine 0.5% 50 ML MDV ONE
[2021-06-30] MEDS ORDERED: ceFAZolin 2 GM in Premix Bag 1 BAG IV ONE (11:00)
[2021-06-30] MEDS ORDERED: ceFAZolin 2 GM in Sodium Chloride 0.9% 50 ML IV ONE (11:00)
[2021-06-30] MEDS ORDERED: Lactated Ringers 1,000 ML IV SCH (11:00)
--- NOTE | 2021-06-30 11:07 | HP ---
Tentatively scheduled for surgical procedure by Dr. Storey on 06/30/2021. IDENTIFYING DATA: Vaibhav Cano is an 85-year-old , male from [facility] in [place], [place] CHIEF COMPLAINT: Ischemic toes of the left foot. HISTORY OF PRESENT ILLNESS: This elderly male, resident of an assisted care facility has a noted history of hypertension, renal insufficiency, type 2 diabetes with peripheral vascular disease. 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 He is tentatively scheduled for surgical amputation by Dr. Storey on 06/30/2021. He notes no current pain. He does have peripheral neuropathy with diminished sensation in the feet. 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 PAST MEDICAL HISTORY: Additionally, he has a history of diabetes, hypertension, renal insufficiency, and peripheral vascular disease. He has symptoms of congestive heart failure with chronic dependent edema of the lower extremities. ALLERGIES: NONE NOTED. HABITS: Nonsmoker of 25 years' time. Caffeine intake; averages 1 cup of coffee daily. Rare use of alcohol in social settings. IMMUNIZATIONS: He has received a fall time influenza vaccine and primary COVID vaccine series. CURRENT MEDICATIONS: Acetaminophen 650 mg q.4 hours p.r.n. pain; atorvastatin 40 mg daily; clindamycin 300 mg t.i.d. for 2 weeks for lower extremity infections; finasteride 5 mg daily; furosemide 40 mg daily; gabapentin 100 mg t.i.d.; glipizide extended-release 5 mg daily; hydroxyzine 25 mg q.8 hours p.r.n. itch and pruritus; lactobacillus 1 capsule daily; lisinopril 2.5 mg daily; loperamide 2 mg p.r.n. loose stools; metolazone, now discontinued; metoprolol tartrate 25 mg b.i.d.; MiraLax 17 g daily p.r.n. constipation; spironolactone 6.25 mg daily; warfarin 2.5 mg tablets, 1.25 mg Tuesday, 2.5 mg rest of the week, held this a.m. SOCIAL HISTORY: Retired chiropractic doctor, now residing in assisted care facility. Family is available to provide transportation and assistance in the postoperative period. He generally ambulates with use of a walker. He does have mild cognitive impairment. FAMILY HISTORY: No knowledge of family history of anesthetic reactions, coagulopathy, or recent COVID infection. REVIEW OF SYSTEMS: NEUROLOGIC: Mild cognitive impairment of early dementia. He does have recognized hearing loss. Does not wear hearing aids. Corrective lenses are worn. Denies a history of cataracts or glaucoma. No history of strokes or focal weakness. CARDIAC: History of aortic valve disease, status post aortic valve replacement with ongoing anticoagulant therapy. Pacemaker in place. No chest pain, palpitations, or syncope. RESPIRATORY: He denies asthma, emphysema, tuberculosis, or recent COVID exposure. Did have active COVID disease in 2020. GASTROINTESTINAL: No chronic dyspepsia, nausea, emesis, hepatitis, melena, or hematochezia. GENITOURINARY: Nocturnal incontinence, rises once nightly to void. MUSCULOSKELETAL: Foot pain of peripheral vascular disease and diabetic neuropathy. PHYSICAL EXAMINATION: GENERAL: Appearance that of a thin elderly male in no acute distress. VITAL SIGNS: Weight 180-1/2 pounds, blood pressure 120/70, pulse 60, respiratory rate 14, temperature 98.2, O2 sats 99% on room air. HEENT: Hearing is diminished, though is able to engage in conversation. Canals and TMs are normal. Extraocular eye movements are symmetrical. No nasal congestion. No oropharyngeal lesions. NECK: Brisk carotid pulse. Radiating aortic murmur. Radiating aortic closure sounds to the carotid areas bilaterally. No JVD. LUNGS: Symmetrical, clear, resonant, non tachypneic. HEART: Regular. Metallic aortic closure is noted, end late systole. Grade 2 to 3 outflow murmur over the aortic valve. ABDOMEN: Thin, soft, nontender, and nondistended. No organomegaly. Active sounds. Good femoral pulses. No abdominal bruits. No CVA pain. GENITOURINARY and RECTAL: Omitted. EXTREMITIES: Chronic moderate dependent edema of the lower extremities extending from mid tibial face to the ankles. He has diabetic ulcers of the toes of the left foot. No significant varicosities or phlebitic changes evident. Chronic mild arthralgias of the knees reported by the patient. IMPRESSION: 1. Peripheral vascular disease with ischemic ulcers of the digits of the left foot. 2. History of type 2 diabetes with peripheral neuropathy and sensory loss. 3. Hypertension. 4. Renal insufficiency. 5. History of congestive heart failure with chronic dependent edema, status post aortic valve replacement and pacemaker in place. Stable cardiac presentation. 6. Mild cognitive impairment with memory loss. PLAN: The patient appears to be a stable candidate for tentatively scheduled procedure by Dr. Storey on 06/30/2021. Medications this morning have been held. His daughter will accompany him and provide confirmation of medical care and consent for scheduled surgery. No other contraindications to surgery are noted. Note that recent labs include a negative rapid COVID screen on 06/29/2021, with an INR of 2.4 also noted on that date. Basic metabolic panel of 06/24/2021 revealed a sodium of 139, potassium 4.9, BUN 39, creatinine 1.44, GFR 47 with glucose of 133. Hemogram of 06/12/2021, included a WBC of 10.4; hemoglobin borderline low at 11.5, secondary to chronic disease; hematocrit 37.3; platelet count 326. No other contraindications to surgery are evident. Celestino Rico MD /[id number]
[2021-06-30] MEDS ORDERED: fentaNYL 100 MCG/2 ML SDV ONE (12:04)
[2021-06-30] MEDS ORDERED: Propofol 200 MG/20 ML SDV ONE (12:05)
[2021-06-30 14:32] VITALS: BP 140/69; PULSE 60
--- NOTE | 2021-06-30 20:43 | OR ---
DATE OF PROCEDURE: 06/30/2021 SURGEON: Jaleel Storey DPM PREOPERATIVE DIAGNOSIS: Osteomyelitis, distal phalanx of left great toe. POSTOPERATIVE DIAGNOSIS: Osteomyelitis, distal phalanx of left great toe. PROCEDURE: Partial amputation, left great toe. ANESTHESIA: Local with IV sedation. HEMOSTASIS: Obtained with an ankle tourniquet on the left ankle at 250 mmHg. ESTIMATED BLOOD LOSS: 5 mL. MATERIALS: None. INJECTABLES: A total of 10 mL of Marcaine, 0.5% plain was injected preoperatively. PATHOLOGY: Distal phalanx of left great toe was sent, and deep cultures were taken of the distal portion of the left great toe that had been removed after it was moved to the back table, aerobic and anaerobic cultures. CONDITION: Stable. INDICATIONS FOR SURGERY: Osteomyelitis, distal phalanx, left great toe. PROCEDURE: Patient was brought to the operating room, placed on the operating table in supine position. Following IV sedation, the left foot was anesthetized with 10 mL of Marcaine 0.5% plain. The left foot was scrubbed, prepped, and draped in the usual aseptic manner, raised to 60 degrees for hemostasis and tourniquet was inflated. Foot was lowered onto the table. Skin incision was made just distal to the interphalangeal joint on the left great toe and carried around the plantar distal aspect of the left great toe distal to the ulceration to make sure that we had clean margins and the proximal phalanx was carefully removed along with the ulcerated skin, and the skin and nail plate on the dorsal aspect of the distal portion of left great toe was completely removed, and then on the back table, we got deep cultures from the distal portion of the left great toe aerobic and anaerobic. We then inspected the surgical site at the proximal aspect of the toe and found that there was healthy bleeding tissue, that we flushed out with 500 mL of sterile saline and then closed with 2-0 Prolene in a simple interrupted configuration, dressed with Xeroform, 4x4s, Kerlix, and José. We sent home the patient with instructions to change dressings daily as he is living in a senior care with Xeroform, 4x4s, Kerlix, and José, for patient to ambulate in a surgical shoe and for patient to return to clinic for followup in one week, at which time he will be re-evaluated and to finish his clindamycin as directed. Also instructions were sent home with him to the senior care to go to the emergency room if he has any nausea, vomiting, fever, chills, chest pain, calf pain, or difficulty breathing. The patient to return to clinic in one week. Jaleel Storey DPM /[id number]
== END 2021-06-30 15:25 | disposition home or self-care (01) ==
LOC: JP.SDS 10:11
PROVIDERS: ATTEND Podiatrist Foot & Ankle Surgery
DX: M86.8X7 Other osteomyelitis, ankle and foot (principal); L97.529 Non-pressure chronic ulcer of other part of left foot with unspecified severity; E11.51 Type 2 diabetes mellitus with diabetic peripheral angiopathy without gangrene; E11.42 Type 2 diabetes mellitus with diabetic polyneuropathy; I50.9 Heart failure, unspecified; I13.0 Hypertensive heart and chronic kidney disease with heart failure and stage 1 through stage 4 chronic kidney disease, or unspecified chronic kidney disease; I48.91 Unspecified atrial fibrillation; E11.22 Type 2 diabetes mellitus with diabetic chronic kidney disease; N18.30 Chronic kidney disease, stage 3 unspecified; Z98.890 Other specified postprocedural states; Z79.899 Other long term (current) drug therapy; Z79.84 Long term (current) use of oral hypoglycemic drugs
CPT/HCPCS: 76000; 87070; 87075; 87205; J0690; J2704; J3010; J3490; J7120

== ENCOUNTER 2021-07-22 10:30 | Emergency (ER) | payer MEDICARE, MEDICAID ==
--- NOTE | 2021-07-22 10:59 | EDM.PDOC ---
ED HPI GENERAL MEDICAL PROBLEM - General Chief Complaint: Gastrointestinal Problem Stated Complaint: MEDICAL VIA [place] Time Seen by Provider: 07/22/21 10:40 Source of Information: Reports: Patient, EMS, RN Notes Reviewed History Limitations: Reports: No Limitations - History of Present Illness INITIAL COMMENTS - FREE TEXT/NARRATIVE: 85-year-old male who recently had a left large toe surgery, it is healing nicely but this morning he had a bout of diarrhea followed by some lightheaded sensations, slight diaphoresis and pallor and hypotension. It worried the nurses so they called the ambulance, by the time they got there he was feeling back to normal but they thought they should send him in for evaluation. He is perfectly stable. Diarrhea is not dark, he is not on an antibiotic currently. Patient himself has no complaints. Onset: Sudden Duration: Hour(s): Associated Symptoms: Reports: Malaise, Weakness, Other (Diarrhea). Denies: Fever/Chills, Headaches, Shortness of Breath - Related Data Allergies Allergy/AdvReac Type Severity Reaction Status Date / Time No Known Allergies Allergy Verified 07/22/21 10:37 Home Meds: Home Meds Finasteride 5 mg PO DAILY 05/13/14 [History] Furosemide 40 mg PO DAILY 05/13/14 [History] Metoprolol Tartrate 25 mg PO BID 05/13/14 [History] Lactobacillus Acidophilus [Acidophilus Probiotic] 1 each PO BID #60 capsule 06/29/20 [Rx] Lactobacillus Rhamnosus GG [Culturelle] 1 cap PO DAILY cap 07/02/20 [Rx] Gabapentin [Neurontin] 100 mg PO TID 05/28/21 [History] Spironolactone [Aldactone] 25 mg PO DAILY 05/28/21 [History] glipiZIDE [glipiZIDE XL] 5 mg PO DAILY 05/28/21 [History] Acetaminophen 650 mg PO BEDTIME 06/30/21 [History] Loperamide [Imodium] 2 mg PO ASDIRECTED PRN 06/30/21 [History] atorvaSTATin [Lipitor] 20 mg PO DAILY 06/30/21 [History] clindamycin HCL [Cleocin] 150 mg PO Q8H PRN 06/30/21 [History] hydrOXYzine HCL [Atarax] 25 mg PO Q8H PRN 06/30/21 [History] polyethylene glycoL 3350 [MiraLAX] 17 gm PO DAILY 06/30/21 [History] Warfarin [Coumadin] 1.25 mg PO ASDIRECTED 07/22/21 [History] Warfarin [Coumadin] 2.5 mg PO ASDIRECTED 07/22/21 [History] Past Medical History HEENT History: Reports: Hard of Hearing, Impaired Vision Cardiovascular History: Reports: Heart Failure, Heart Valve Replacement, Hypertension, Pacemaker Genitourinary History: Reports: BPH Musculoskeletal History: Reports: Arthritis Neurological History: Reports: CVA Psychiatric History: Reports: Dementia Endocrine/Metabolic History: Reports: Diabetes, Type II Hematologic History: Reports: Anticoagulation Therapy - Infectious Disease History Infectious Disease History: Reports: Chicken Pox, Measles, Mumps, Novel Coronavirus, Other (See Below) Other Infectious Disease History: Covid 2020 - Past Surgical History Head Surgeries/Procedures: Reports: None HEENT Surgical History: Reports: None Cardiovascular Surgical History: Reports: Pacer, Vascular Surgery Endocrine Surgical History: Reports: None Neurological Surgical History: Reports: None Musculoskeletal Surgical History: Reports: None Dermatological Surgical History: Reports: None Social & Family History - Family History Family Medical History: No Pertinent Family History - Tobacco Use Tobacco Use Status *Q: Former Tobacco User Used Tobacco, but Quit: Yes Month/Year Tobacco Last Used: 1987 - Caffeine Use Caffeine Use: Reports: Coffee Caffeine Use Comment: rarely - Recreational Drug Use Recreational Drug Use: No ED ROS GENERAL - Review of Systems Review Of Systems: See Below Constitutional: Reports: Malaise. Denies: Fever, Chills, Decreased Appetite HEENT: Reports: No Symptoms Respiratory: Denies: Shortness of Breath Cardiovascular: Denies: Chest Pain GI/Abdominal: Reports: Diarrhea. Denies: Hematemesis, Hematochezia, Vomiting : Reports: No Symptoms Skin: Reports: Pallor, Diaphoresis ED EXAM, GENERAL - Physical Exam Exam: See Below Exam Limited By: No Limitations General Appearance: Alert, No Apparent Distress, Other (Looks somewhat pale) Eye Exam: Bilateral Eye: EOMI Head: Atraumatic Neck: Non-Tender Respiratory/Chest: Lungs Clear Cardiovascular: Regular Rate, Rhythm, Other (Loud artificial valve click). No: Extra Beats GI/Abdominal: Soft, Non-Tender Extremities: Other (Examined his recent surgery on his large toe of the left foot, it looks clean, there is no erythema or inflammation) Neurological: Alert. No: Confused Psychiatric: Normal Affect, Normal Mood Course - Vital Signs Last Recorded V/S: Last Vital Signs Temp 98.8 F 07/22/21 10:32 Pulse 59 L 07/22/21 11:30 Resp 18 07/22/21 10:32 BP 114/49 L 07/22/21 11:30 Pulse Ox 93 L 07/22/21 10:32 - Orders/Labs/Meds Labs: Laboratory Tests 07/22/21 07/22/21 Range/Units 11:20 11:20 WBC 14.6 H (4.5-11.0) K/uL RBC 4.42 (4.30-5.90) M/uL Hgb 11.5 L D (12.0-15.0) g/dL Hct 35.6 L (40.0-54.0) % MCV 81 (80-98) fL MCH 26 L (27-31) pg MCHC 32 (32-36) % Plt Count 151 (150-400) K/uL Neut % (Auto) 88.5 H (36-66) % Lymph % (Auto) 3.3 L (24-44) % Adams % (Auto) 7.9 H (2-6) % Eos % (Auto) 0.2 L (2-4) % Baso % (Auto) 0.1 (0-1) % Sodium 139 L (140-148) mmol/L Potassium 4.6 (3.6-5.2) mmol/L Chloride 103 (100-108) mmol/L Carbon Dioxide 27 (21-32) mmol/L Anion Gap 13.6 (5.0-14.0) mmol/L BUN 30 H (7-18) mg/dL Creatinine 1.4 H (0.8-1.3) mg/dL Est Cr Clr Drug Dosing 40.34 mL/min Estimated GFR (MDRD) 48 L (>60) Glucose 124 H (74-106) mg/dL Calcium 8.4 L (8.5-10.1) mg/dL - Re-Assessments/Exams Free Text/Narrative Re-Assessment/Exam: 07/22/21 10:58 CBC and BMP were obtained but this patient likely had a mild vasovagal episode and unless something is significant with the laboratory work-up, he can be sent back to the assisted living facility. He will be kept on cardiac monitoring while we await lab results. O2 sats are 95%, blood pressure is normal, pulses normal. 07/22/21 11:52 Labs were generally reassuring, he is not anemic and his chemistry panel is at his baseline. Patient likely had a transient vasovagal episode and is now stable, he can return home. 07/22/21 16:32 Patient rested quietly all afternoon, ambulated without difficulty with a walker and will be sent back without any further treatment. Departure - Departure Time of Disposition: 16:10 Disposition: DC/Tfer to [facility] 62 Clinical Impression: Vasovagal near syncope Diarrhea Qualifiers: Diarrhea type: unspecified type Qualified Code(s): R19.7 - Diarrhea, unspecified - Discharge Information Instructions: Near-Syncope, [id number] Referrals: PCP,None [Primary Care Provider] - Forms: ED Department Discharge Care Plan Goals: Continue current medications, stay hydrated, and recheck as needed with your primary provider. Increase activity as tolerated. Sepsis Event Note (ED) - Evaluation Sepsis Screening Result: No Definite Risk - Focused Exam Vital Signs: Vital Signs Temp Pulse Resp BP Pulse Ox 07/22/21 11:30 59 L 114/49 L 07/22/21 10:32 98.8 F 60 18 118/51 L 93 L
[2021-07-22 11:43] VITALS: BP 114/49; PULSE 59
== END 2021-07-22 16:10 ==
LOC: JP.ED 10:30
DX: R55 Syncope and collapse (principal); R19.7 Diarrhea, unspecified; I11.0 Hypertensive heart disease with heart failure; I50.9 Heart failure, unspecified; E11.9 Type 2 diabetes mellitus without complications; Z86.73 Personal history of transient ischemic attack (TIA), and cerebral infarction without residual deficits; Z95.0 Presence of cardiac pacemaker; Z79.01 Long term (current) use of anticoagulants; Z79.899 Other long term (current) drug therapy; Z87.891 Personal history of nicotine dependence
CPT/HCPCS: 36415; 80048; 85025; 99285

== ENCOUNTER 2021-07-28 16:12 | Emergency (ER) | payer MEDICAID, MEDICARE ==
--- NOTE | 2021-07-28 17:10 | EDM.PDOC ---
ED HPI GENERAL MEDICAL PROBLEM - General Chief Complaint: Fever Stated Complaint: MEDICAL VIA [place] Time Seen by Provider: 07/28/21 16:40 Source of Information: Reports: Patient, EMS History Limitations: Reports: No Limitations - History of Present Illness INITIAL COMMENTS - FREE TEXT/NARRATIVE: 85-year-old male who is now sent in for the 2nd time in 6 days with intermittent weakness. He had 2 doctor visits today, 1 at the clinic for weakness and the other a podiatry recheck. He initially was sent over to the emergency room from the clinic because of a low-grade fever and weakness and diarrhea, however he refused to be seen and went home. They noticed he was very weak again, he wanted to just lay down and sleep but his temperature was 100.4 and he had a bout of diarrhea so they sent him in to be evaluated. His vitals are stable other than a temperature of 100.4. He is not complaining of shortness of breath or pain. He was tested for Covid and that was negative. Onset: Unknown/Unsure Duration: Week(s): (Weakness seems to be ongoing, waxing and waning for the last several weeks) Associated Symptoms: Reports: Fever/Chills, Malaise, Weakness, Other (Diarrhea). Denies: Chest Pain, Cough - Related Data Allergies Allergy/AdvReac Type Severity Reaction Status Date / Time No Known Allergies Allergy Verified 07/28/21 16:14 Home Meds: Home Meds Finasteride 5 mg PO DAILY 05/13/14 [History] Furosemide 40 mg PO DAILY 05/13/14 [History] Metoprolol Tartrate 25 mg PO BID 05/13/14 [History] Lactobacillus Acidophilus [Acidophilus Probiotic] 1 each PO BID #60 capsule 06/29/20 [Rx] Lactobacillus Rhamnosus GG [Culturelle] 1 cap PO DAILY cap 07/02/20 [Rx] Gabapentin [Neurontin] 100 mg PO TID 05/28/21 [History] Spironolactone [Aldactone] 25 mg PO DAILY 05/28/21 [History] glipiZIDE [glipiZIDE XL] 5 mg PO DAILY 05/28/21 [History] Acetaminophen 650 mg PO BEDTIME 06/30/21 [History] Loperamide [Imodium] 2 mg PO ASDIRECTED PRN 06/30/21 [History] atorvaSTATin [Lipitor] 20 mg PO DAILY 06/30/21 [History] clindamycin HCL [Cleocin] 150 mg PO Q8H PRN 06/30/21 [History] hydrOXYzine HCL [Atarax] 25 mg PO Q8H PRN 06/30/21 [History] polyethylene glycoL 3350 [MiraLAX] 17 gm PO DAILY 06/30/21 [History] Warfarin [Coumadin] 1.25 mg PO ASDIRECTED 07/22/21 [History] Warfarin [Coumadin] 2.5 mg PO ASDIRECTED 07/22/21 [History] Past Medical History HEENT History: Reports: Hard of Hearing, Impaired Vision Cardiovascular History: Reports: Heart Failure, Heart Valve Replacement, Hypertension, Pacemaker Genitourinary History: Reports: BPH Musculoskeletal History: Reports: Arthritis Neurological History: Reports: CVA Psychiatric History: Reports: Dementia Endocrine/Metabolic History: Reports: Diabetes, Type II Hematologic History: Reports: Anticoagulation Therapy - Infectious Disease History Infectious Disease History: Reports: Chicken Pox, Measles, Mumps, Novel Coronavirus, Other (See Below) Other Infectious Disease History: Covid 2020 - Past Surgical History Head Surgeries/Procedures: Reports: None HEENT Surgical History: Reports: None Cardiovascular Surgical History: Reports: Pacer, Vascular Surgery Endocrine Surgical History: Reports: None Neurological Surgical History: Reports: None Musculoskeletal Surgical History: Reports: None Dermatological Surgical History: Reports: None Social & Family History - Family History Family Medical History: No Pertinent Family History - Tobacco Use Tobacco Use Status *Q: Never Tobacco User - Caffeine Use Caffeine Use: Reports: Coffee Caffeine Use Comment: rarely - Recreational Drug Use Recreational Drug Use: No ED ROS GENERAL - Review of Systems Review Of Systems: See Below Constitutional: Reports: Fever, Chills, Malaise, Decreased Appetite HEENT: Reports: No Symptoms Respiratory: Denies: Shortness of Breath Cardiovascular: Denies: Chest Pain GI/Abdominal: Reports: Diarrhea. Denies: Nausea, Vomiting Musculoskeletal: Reports: Other (Generalized weakness) Skin: Reports: Pallor ED EXAM, NEURO - Physical Exam Exam: See Below Exam Limited By: No Limitations General Appearance: Alert, No Apparent Distress, Other (Does appear very tired) Eye Exam: Bilateral Eye: Normal Inspection Head Exam: Atraumatic Neck: Non-Tender Respiratory/Chest: Crackles (A few crackles in the extreme bases posteriorly) Cardiovascular: Regular Rate, Rhythm, Other (Loud artificial valve click, faint systolic murmur) GI/Abdominal: Normal Bowel Sounds, Soft Neurological: Alert (Answers questions appropriately but is globally weak) Extremities: Other (Both lower extremities are wrapped, pedal edema is present) Skin Exam: Warm, Dry Course - Vital Signs Last Recorded V/S: Last Vital Signs Temp 100.4 F 07/28/21 16:17 Pulse 60 07/29/21 05:47 Resp 14 07/29/21 05:47 BP 113/53 L 07/29/21 05:47 Pulse Ox 95 07/29/21 05:47 - Orders/Labs/Meds Labs: Laboratory Tests 07/28/21 Range/Units 16:48 Sodium 133 L (140-148) mmol/L Potassium 3.4 L (3.6-5.2) mmol/L Chloride 99 L (100-108) mmol/L Carbon Dioxide 21 (21-32) mmol/L Anion Gap 16.4 H (5.0-14.0) mmol/L BUN 40 H (7-18) mg/dL Creatinine 1.9 H (0.8-1.3) mg/dL Est Cr Clr Drug Dosing 30.63 mL/min Estimated GFR (MDRD) 34 L (>60) Glucose 127 H (74-106) mg/dL Calcium 7.9 L (8.5-10.1) mg/dL Total Bilirubin 1.9 H (0.2-1.0) mg/dL AST 24 (15-37) U/L ALT 27 (12-78) U/L Alkaline Phosphatase 78 (46-116) U/L Total Protein 5.4 L (6.4-8.2) g/dL Albumin 2.8 L (3.4-5.0) g/dL Globulin 2.6 (2.3-3.5) g/dL Albumin/Globulin Ratio 1.1 L (1.2-2.2) Meds: Medications Discontinued Medications Generic Name Dose Route Start Last Admin Trade Name Freq PRN Reason Stop Dose Admin Sodium Chloride 500 mls @ 1,000 mls/hr 07/28/21 17:30 07/28/21 17:31 Normal Saline IV 1,000 mls/hr ASDIRECTED SANKET Administration - Re-Assessments/Exams Free Text/Narrative Re-Assessment/Exam: 07/28/21 17:38 CBC was already drawn earlier today and report was it was "okay". I did review the results and white count is improved from when he was here 6 days ago, it was 14,600, now 11,000. Chemistry panel was drawn, bilirubin and creatinine are slightly elevated compared to 6 days ago when GFR is down slightly. Electrolytes are otherwise relatively reassuring and near his baseline. He was given a 500 cc bolus of normal saline. 07/28/21 17:40 Patient does not have a diagnosis requiring admission at this time and there are no beds available. He will be sent back to his assisted living facility. Departure - Departure Time of Disposition: 08:38 Disposition: DC/Tfer to [facility] 62 Clinical Impression: Generalized weakness, Dehydration, mild Diarrhea Qualifiers: Diarrhea type: unspecified type Qualified Code(s): R19.7 - Diarrhea, unspecified - Discharge Information Instructions: Weakness Referrals: PCP,Unknown [Primary Care Provider] - Forms: ED Department Discharge Care Plan Goals: Resume regular medications and increase activity as tolerated. He may need to be transferred to a higher level of care if not improving. Sepsis Event Note (ED) - Evaluation Sepsis Screening Result: No Definite Risk - Focused Exam Vital Signs: Vital Signs Pulse Resp BP Pulse Ox 07/29/21 05:47 60 14 113/53 L 95
[2021-07-28] MEDS ORDERED: Sodium Chloride 0.9% 500 ML IV SCH (17:30)
[2021-07-28 17:31] VITALS: PULSE 60
[2021-07-29 05:48] VITALS: BP 113/53
== END 2021-07-29 08:39 ==
LOC: JP.ED 16:12
DX: E86.0 Dehydration (principal); R53.1 Weakness; R19.7 Diarrhea, unspecified; I11.0 Hypertensive heart disease with heart failure; I50.9 Heart failure, unspecified; M19.90 Unspecified osteoarthritis, unspecified site; E11.9 Type 2 diabetes mellitus without complications; Z79.84 Long term (current) use of oral hypoglycemic drugs; Z79.899 Other long term (current) drug therapy
CPT/HCPCS: 36415; 80053; 99285; J7030